=== PATIENT | female | born 1990 | race Caucasian/White ===

== ENCOUNTER 2022-03-24 14:05 | Emergency (ER) | payer OTHER, SELFPAY ==
--- NOTE | 2022-03-24 14:21 | ED_ITS ---
HPI - URI/Sore Throat General Stated Complaint: Fatigue,Headache,Nausea Discharge Plan Discharge Follow-up/Referrals: PHYSICIAN,NETWORK CABLER [Primary Care Provider] -
--- NOTE | 2022-03-24 14:21 | ED.URI ---
HPI - URI/Sore Throat General Stated Complaint: Fatigue,Headache,Nausea Discharge Plan Discharge Follow-up/Referrals: PHYSICIAN,LIFE INSURANCE SPECIALIST [Primary Care Provider] -
[2022-03-24 14:27] VITALS: BP 131/76; PULSE 91; RESP 18; TEMP 36.8; O2SAT 98
--- NOTE | 2022-03-24 14:38 | ED.URI ---
HPI - URI/Sore Throat General Chief Complaint: Upper Respiratory Infection Stated Complaint: Fatigue,Headache,Nausea Time Seen by Provider: 03/24/22 14:45 Source: patient and RN notes reviewed Mode of arrival: ambulatory Limitations: no limitations History of Present Illness HPI Narrative: 41-year-old female presents concern for 4-day history of nasal congestion, fatigue, sinus pressure, nausea, headache. Reports fever up to 101. She reports symptoms started with a migraine that has improved, she is still having a sinus headache. She reports taking utdp-tll-avicpwe cold and flu medicines without relief. She denies vomiting or abdominal pain MD elicited complaint: nasal congestion Related Data Home Medications Medication Instructions Recorded Confirmed duloxetine 30 mg capsule,delayed 30 mg PO DAILY 03/24/22 03/24/22 release duloxetine 60 mg capsule,delayed 60 mg PO DAILY 03/24/22 03/24/22 release Allergies Allergy/AdvReac Type Severity Reaction Status Date / Time cefaclor [From Ceclor] Allergy Unknown Verified 03/24/22 14:53 metoclopramide [From Reglan] Allergy Unknown Verified 03/24/22 14:53 Pndfoyz-ROP-OsC Reductase Allergy Unknown Verified 03/24/22 14:53 Inhibitor Review of Systems Review of Systems: CONSTITUTIONAL: Reports malaise, fatigue, fever. EYES: Denies visual changes, redness, or discharge. ENT: Reports rhinorrhea, congestion, sinus pain. Denies otalgia and sore throat. CARDIOVASCULAR: Denies chest pain, palpitations, or edema. RESPIRATORY: Denies cough. Denies dyspnea. GASTROINTESTINAL: Denies abdominal pain, nausea, vomiting, diarrhea SKIN: Denies rash or itching. MUSCULOSKELETAL: Denies myalgia. NEUROLOGIC: Reports headache. All systems reviewed & are unremarkable except as noted in HPI and below PMFSH Comments At time of signature, agree with nursing past medical, surgical, social and family history. There is no relevant family history pertinent to the presenting complaint Exam Narrative: GENERAL: Well-appearing, well-nourished, and in no acute distress. HEAD: Normocephalic EYES: PERRLA, conjunctivae clear ENT: Nares clear, turbinates edematous and erythematous, clear discharge. Mucous membranes moist. TM pearly fry with dull light reflex bilaterally; no tragal tenderness. Oropharynx not erythematous without lesions. Tonsils not enlarged and without exudate, no drooling, no hoarseness, no trismus, uvula midline. NECK: Supple. No lymphadenopathy CHEST: Clear to auscultation, breath sounds equal. No wheezing, rhonchi, rales, or stridor. No respiratory distress, speaks in full sentences. HEART: Regular rate and rhythm. No murmur heard. SKIN: Warm, dry, no rash. NEURO: Alert and oriented x3. PSYCH: Normal mood and affect Course Course Emergency Course: Patient is aware of diagnosis, understands and agrees to treatment plan. Anticipatory guidance given. Patient agrees to follow-up as directed and is aware of reasons to seek care at the emergency department. Portions of this record may have been created with voice recognition software Level of Care: Express Care Visit Vital Signs Vital signs: Vital Signs Temperature 98.2 F 03/24/22 14:27 Pulse Rate 91 03/24/22 14:27 Respiratory Rate 18 03/24/22 14:27 Blood Pressure 131/76 03/24/22 14:27 Pulse Oximetry 98 03/24/22 14:27 Oxygen Delivery Room Air 03/24/22 14:27 Temperature 98.2 F 03/24/22 14:27 Pulse Rate 91 03/24/22 14:27 Respiratory Rate 18 03/24/22 14:27 Blood Pressure 131/76 03/24/22 14:27 Pulse Oximetry 98 03/24/22 14:27 Oxygen Delivery Room Air 03/24/22 14:27 Reviewed. MDM - URI/Sore Throat MDM Narrative Medical decision making narrative: Differential diagnosis considered: Ortiz virus, strep pharyngitis, allergic rhinitis, upper respiratory tract infection, sinusitis, rhinosinusitis, nasopharyngitis. viral pharyngitis, otitis media, otitis externa, pneumonia, bronchitis, vir
== END 2022-03-24 15:04 | disposition home or self-care (01) ==
PROVIDERS: Emergency Provider Nurse Practitioner
DX: B34.9 Viral infection, unspecified (principal); F32.A Depression, unspecified
CPT/HCPCS: 87804; 99203; G0463

== ENCOUNTER 2023-03-08 09:16 | Outpatient (RCR) | payer OTHER, SELFPAY | END 2023-06-06 23:59 | disposition home or self-care (01) | LOC: ANHDMC 09:16 | PROVIDERS: Visit Provider Obstetrics & Gynecology Gynecologic Oncology | DX: O24.419 Gestational diabetes mellitus in pregnancy, unspecified control (principal); Z3A.27 27 weeks gestation of pregnancy; Z71.89 Other specified counseling | CPT/HCPCS: G0108 ==

== ENCOUNTER 2025-01-26 13:36 | Emergency (ER) | payer BC, SELFPAY ==
--- NOTE | 2025-01-26 13:37 | ED_ITS ---
HPI - Skin/Abscess/Foreign Bdy General Chief complaint: Skin/Abscess/Foreign Body Stated complaint: Skin/Abscess/Foreign Body Time Seen by Provider: 01/26/25 13:37 Source: patient Mode of arrival: ambulatory Limitations: no limitations History of Present Illness HPI narrative: Patient is a 34-year-old female that presents for infected wound. Patient states she had Nexplanon removed from left arm 2 weeks ago. Patient states approximately 8 days ago it started to appear to be ulcerating and had green discharge where lidocaine had been injected. Patient denies any worsening surrounding redness, fever, chills, nausea, vomiting, diarrhea. Related Data Home Medications ?Medication ?Instructions ?Recorded ?Confirmed ?Last Taken ?Type duloxetine 30 mg capsule,delayed 30 mg PO DAILY 03/24/22 01/26/25 Unknown History release duloxetine 60 mg capsule,delayed 60 mg PO DAILY 03/24/22 01/26/25 Unknown History release ergocalciferol (vitamin D2) 1,250 01/26/25 Unknown History mcg (50,000 unit) capsule ezetimibe 10 mg tablet mg 01/26/25 Unknown History lamotrigine 100 mg tablet mg 01/26/25 Unknown History Allergies Allergy/AdvReac Type Severity Reaction Status Date / Time cefaclor (From Ceclor) Allergy Unknown Verified 01/26/25 13:44 metoclopramide (From Reglan) Allergy Unknown Verified 01/26/25 13:44 Rhvvhad-AHX-LhN Reductase Allergy Unknown Verified 01/26/25 13:44 Inhibitor Review of Systems 2 Review of Systems: All systems reviewed & are unremarkable except as noted in HPI and below Constitutional: Constitutional: Denies body ache(s), Denies chills, Denies fatigue, Denies fever(s), Denies headache(s), Denies malaise and Denies weakness Eyes: Eyes: Denies blurry vision, Denies irritation and Denies loss of vision ENT: Denies otalgia, Denies headache(s), Denies nasal discharge, Denies sinus pain and Denies sore throat Cardiovascular: Cardiovascular: Denies chest pain, Denies irregular heart rhythm and Denies dyspnea Respiratory: Respiratory: Denies dyspnea Gastrointestinal: Gastrointestinal: Denies abdominal pain, Denies melena, Denies hematochezia, Denies diarrhea, Denies nausea and Denies vomiting Musculoskeletal: Musculoskeletal: Denies back pain, Denies myalgias and Denies arthralgias Integumentary/Breasts: Skin/Breast: Denies pruritus, Reports erythema, Denies rash, Reports skin pain and Reports wounds Neurologic: Denies headache(s), Denies loss of vision and Denies weakness Psychiatric: Psychiatric: Reports no additional psychiatric complaints Endocrine: Endocrine: Denies fatigue PMFSH Comments At time of signature, agree with nursing past medical, surgical, social and family history. There is no relevant family history pertinent to the presenting complaint. Exam 2 Const: General: cooperative, healthy appearing, comfortable, no acute distress and well nourished Nutritional Appearance: well nourished O rientation/consciousness: patient oriented x3 Limitations: no limitations HENMT: Head: normal to inspection, normocephalic and atraumatic Ears: h earing grossly normal bilaterally and external ears normal Face/Nose/Sinus: N ormal external nose present, normal facial exam and face symmetric Face and sinus: normal facial exam and face symmetric Mouth: Yes lip normal Eyes: General: appearance normal, both eyes and all related structures A lignment and Position: alignment normal and position normal Periorbital: p eriorbital findings normal Eyelids: eyelids normal Pupils: Equal, round and reactive pupils present EOM: EOMs intact bilaterally Neck: Neck: normal visual inspection, full ROM and supple Chest: Chest palpation & inspection: normal inspection of the chest Resp: Effort & Inspection: normal respiratory effort and able to speak in complete sentences Auscultation: clear to auscultation bilaterally Cardio: Rate: tachycardic Rhythm: regular rhythm Heart sounds: S1 normal heart sound present and S2 normal heart sound present GI: Inspection: normal to inspection Skin: General skin exam: normal color Full body images: 1. 1x1.5 cm area of ulcerating open wound. surrounded by 2x3 cm area of erythema and induration. Neuro: General: patient oriented x3 and moves all extremities Cranial nerves: Yes Equal, round and reactive pupils present Speech: normal speech Gait exam (Neuro): Normal gait present Extrem: General: normal to inspection, full ROM and no edema Psych: Appearance: grossly normal and well kempt Mental Status: mental status grossly normal Speech and movement: Normal speech and movement present Affect: normal affect Attitude: cooperative Thought process: Normal thought process present Course Course Emergency Course: Patient is aware of diagnosis, understands and agrees to treatment plan. Anticipatory guidance given. Patient agrees to follow-up as directed and is aware of reasons to seek care at the emergency department. Portions of this record may have been created with voice recognition software Level of Care: Express Care Visit Vital Signs Vital signs: Vital Signs Temperature 36.3 C L 01/26/25 13:55 Pulse Rate 108 H 01/26/25 13:55 Respiratory Rate 20 01/26/25 13:55 Blood Pressure 121/76 01/26/25 13:55 Pulse Oximetry 99 01/26/25 13:55 Oxygen Delivery Room Air 01/26/25 13:55 Temperature 36.3 C L 01/26/25 13:55 Pulse Rate 108 H 01/26/25 13:55 Respiratory Rate 20 01/26/25 13:55 Blood Pressure 121/76 01/26/25 13:55 Pulse Oximetry 99 01/26/25 13:55 Oxygen Delivery Room Air 01/26/25 13:55 Reviewed MDM - Skin/Abscess/Foreign Bdy MDM Narrative Medical decision making narrative: Pt well hydrated appearing, in no respiratory distress, hemodynamically stable. Recommend supportive care. The patient is stable at time of discharge the clinical impression was discussed and the patient was given the opportunity to ask questions, which were addressed as completely as possible given the information available at present. Anticipatory guidance and return to care precautions were discussed and the importance of primary care follow-up was stressed and encouraged. The patient voiced understanding of the plan, indications to return, and the need for follow-up. Exam findings show no acute concerns or changes Patient is appropriate for outpatient treatment and follow-up. Differential Diagnosis Differential diagnosis: Likely abscess of skin or subcutaneous tissue, allergic reaction to drug, cellulitis and contact dermatitis Medical Records Attestation: I reviewed the patient's medical records. Discharge Plan Discharge Clinical Impression: Cellulitis Qualifiers: Site of cellulitis: extremity Site of cellulitis of extremity: upper extremity Laterality: left Qualified Code(s): L03.114 - Cellulitis of left upper limb Patient Disposition: Home Condition: Stable Instructions: Cellulitis (ED) Additional Instructions: Please follow up with your Primary Care Doctor within 48-72 hours - call for an appointment. Rest and elevate affected area; apply moist heat 3-4 times daily for 10-15 minutes. Clean with soap and water only; Avoid using alcohol and peroxide. Elevate the affected area if possible Please take Antibiotics as directed. For pain, you may take: Tylenol 650-1000mg by mouth every 4-6 hours. Do not exceed 4000mg in 24 hours. Advil (Ibuprofen) 600 mg by mouth every 6 hours. Do not exceed 2400mg in 24 hours. 8 AM: Tylenol 11 AM: Ibuprofen 2 PM: Tylenol 5 PM: Ibuprofen 8 PM: Tylenol 11 PM: Ibuprofen 2 AM: Tylenol 5 AM: Ibuprofen If you experience any worsening redness, swelling, streaking (red lines), fever or chills please go to the ER Patient Language: Hebrew Prescriptions: New sulfamethoxazole-trimethoprim 800-160 mg tablet 1 tablet PO Q12H 7 Days Qty: 14 0RF No Action duloxetine 30 mg capsule,delayed release(DR/EC) 30 mg PO DAILY duloxetine 60 mg capsule,delayed release(DR/EC) 60 mg PO DAILY ergocalciferol (vitamin D2) 1,250 mcg (50,000 unit) capsule lamotrigine 100 mg tablet ezetimibe 10 mg tablet Follow-up/Referrals: Romy,Nilsa Alegre, GRAPHICS ARTIST [Primary Care Provider] - 3 Days Time of Disposition: 14:22
--- OUTSIDE RECORDS SUMMARY | 2025-01-26 13:39 | XMS_ITS | Encounter Summary ---
Author Organization [facility] Address [address] [place] [address] Care Team Providers Care Stores Assistant Name Role Phone Esme Mercado MD Primary Care Provider Unavailab le Encounter Details Date Type Department Care Team (Late st Contact Info) Description 11/27/2004 Outpatient [facility] Family Medicine [address] 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
--- OUTSIDE RECORDS SUMMARY | 2025-01-26 13:39 | XMS_ITS | Encounter Summary ---
Author Organization [employer] Address 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
--- OUTSIDE RECORDS SUMMARY | 2025-01-26 13:39 | XMS_ITS | Encounter Summary ---
Author Organization [employer] Address [address] [place] [address] Care Team Providers Care Neurology Physician Name Role Phone Esme Mercado MD Primary Care Provider Unavailab le Encounter Details Date Type Department Care Team (Late st Contact Info) Description 11/28/2004 Outpatient Historical [facility] Ilda Rivera MD [address] [place] [address] ABDOMINAL PAIN UNSPEC SITE (Primary Dx) Social History Tobacco Use Types Packs/Day Years Used Date Smoking Tobacco: Never Assessed Comments Unknown Sex and Gender Information Value Date Recorded Sex Assigned at Not on file 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 Gender Identity Not on file Sexual Orientation Not on file documented as of this encounter Plan of Treatment Not on file documented as of this encounter Procedures Procedure Name Priority Date/Time Associated Diagnosis Comments URINE PERIOD/VOLUME Routine 11/28/2004 1 0:29 AM CDT PORPHOBILINOGEN QUANTITATIVE, 24HR URINE Routine 11/28/2004 10:29 AM CDT documented in this encounter Results * URINE PERIOD/VOLUME (11/28/2004 10:29 AM CDT) START DATE 24 HR UR :[id number] .[id number]:0: 0 INTERFACE SYSTEM START TIME 24 HR UR [id number] time INTERFACE SYSTEM LENGTH OF COLLECTION 24 23 - 25 hr INTERFACE SYSTEM VOLUME, 24 HR URINE 1275 mL INTERFACE SYSTEM 11/28/2004 10:2 9 AM CDT Ilda Tello MD URINE ORDERABLES Final Resul t Performing Organization Address [facility] Phone Number INTERFACE SYSTEM Refer to clinic/hospital department * PORPHOBILINOGEN QUANTITATIVE, 24HR URINE (11/28/2004 10:29 AM CDT) PORPHOBILINOGEN QNT, 24 HR UR 1.1 mg/24 hrs INTERFACE SYSTEM Comment: Reference Range: 2.7 OR LESS Elevated Urine Porphyria Porphobilinogen Acute intermittent porphyria + ALA dehydratase deficiency + porphyria Congenital erythropoietic - coproporphyia Erythropoietic protoporphyria - Hepatoerythropoietic - porphyria Hereditary coproporphyria +/- Porphyria cutanea tarda - Variegate porphyria +/- Patients with hereditary forms of porphyria usually will present with profound elevations of this analyte (>5-fold) during acute episodes. Moderate elevations (<3-fold) are more often due to medications or environmental factors. Lab test performed by: [email or web address] [id number] [place] [address] Genie STUBBS MD 11/28/2004 10:2 9 AM CDT Ilda Tello MD URINE ORDERABLES Final Resul t Performing Organization Address [facility] Phone Number INTERFACE SYSTEM Refer to clinic/hospital department documented in this encounter Visit Diagnoses Diagnosis Abdominal pain, unspecified site- Primary documented in this encounter Care Teams Neurology Physician Relationship Specialty Start Date End Date Esme Mercado MD PCP - General Family Practice 09/06/14 documented as of this encounter
--- OUTSIDE RECORDS SUMMARY | 2025-01-26 13:39 | XMS_ITS | Encounter Summary ---
Author Organization [facility] [place] Address [address] [place] [address] Care Team Providers Care Bag Cutter Name Role Phone Esme Mercado MD Primary Care Provider Unavailab le Encounter Details Date Type Department Care Team (Late st Contact Info) Description 08/11/2003 Outpatient Historical [facility] [address] [place] [address] Dr [address] [place] [address] John Milton MD [address] [place] [address] Social History Tobacco Use Types Packs/Day Years Used Date Smoking Tobacco: Never Assessed Comments Unknown Sex and Gender Information Value Date Recorded Sex Assigned at Not on file Legal Sex Female 5:20 AM METAL ROOM DENTAL TECHNICIAN Gender Identity Not on file Sexual Orientation Not on file documented as of this encounter Plan of Treatment Not on file documented as of this encounter Visit Diagnoses Not on filedocumented in this encounter Care Teams Bag Cutter Relationship Specialty Start Date End Date Esme Mercado MD PCP - General Family Practice 09/06/14 documented as of this encounter
--- OUTSIDE RECORDS SUMMARY | 2025-01-26 13:39 | XMS_ITS | Encounter Summary ---
Author Organization [employer] Address 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
--- OUTSIDE RECORDS SUMMARY | 2025-01-26 13:39 | XMS_ITS | Encounter Summary ---
Author Organization [employer] Address [address] [place] [address] Care Team Providers Care Machine Assembler For Puller Over Name Role Phone Esme Mercado MD Primary Care Provider Unavailab le Encounter Details Date Type Department Care Team (Late st Contact Info) Description 09/15/2004 Outpatient Historical [facility] John Milton MD [address] [place] [address] FEMALE GENITAL SYMPTOMS NEC (Primary Dx) Social History Tobacco Use Types Packs/Day Years Used Date Smoking Tobacco: Never Assessed Comments Unknown Sex and Gender Information Value Date Recorded Sex Assigned at Not on file Legal Sex Female 5:20 AM DIRECT SERVICE WORKER Gender Identity Not on file Sexual Orientation Not on file documented as of this encounter Plan of Treatment Not on file documented as of this encounter Visit Diagnoses Diagnosis Other specified symptom associated with female genital organs- Primary documented in this encounter Care Teams Machine Assembler For Puller Over Relationship Specialty Start Date End Date Esme Mercado MD PCP - General Family Practice 09/06/14 documented as of this encounter
--- OUTSIDE RECORDS SUMMARY | 2025-01-26 13:39 | XMS_ITS | Encounter Summary ---
Author Organization [employer] Address [address] [place] [address] Care Team Providers Care Florist Name Role Phone Esme Mercado MD Primary Care Provider Unavailab le Encounter Details Date Type Department Care Team (Late st Contact Info) Description 08/23/2003 Outpatient Historical [facility] Child and Adolescent Psychiatry [facility] [address] [place] [address] Samy Verduzco, RECYCLER- NO ADDRESS ON FILE Social History Tobacco Use Types Packs/Day Years Used Date Smoking Tobacco: Never Assessed Comments Unknown Sex and Gender Information Value Date Recorded Sex Assigned at Not on file 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
--- OUTSIDE RECORDS SUMMARY | 2025-01-26 13:39 | XMS_ITS | Encounter Summary ---
Author Organization [employer] Address [address] [place] [address] Care Team Providers Care Brush Or Broom Cutter Name Role Phone Esme Mercado MD Primary Care Provider Unavailab le Encounter Details Date Type Department Care Team (Late st Contact Info) Description 02/22/2004 Emergency [facility] Ebony Manning MD [address] [place] [id number] Er, Authorized P NO ADDRESS ON FILE DEPRESSIVE DISORDER NEC (Primary Dx) Social History Tobacco Use Types Packs/Day Years Used Date Smoking Tobacco: Never Assessed Comments Unknown Sex and Gender Information Value Date Recorded Sex Assigned at Not on file Legal Sex Female 5:20 AM FORMULA BOTTLER Gender Identity Not on file Sexual Orientation Not on file documented as of this encounter Plan of Treatment Not on file documented as of this encounter Visit Diagnoses Diagnosis Depressive disorder, not elsewhere classified- Primary documented in this encounter Care Teams Brush Or Broom Cutter Relationship Specialty Start Date End Date Esme Mercado MD PCP - General Family Practice 09/06/14 documented as of this encounter
--- OUTSIDE RECORDS SUMMARY | 2025-01-26 13:39 | XMS_ITS | Encounter Summary ---
Author Organization [employer] Address 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
--- OUTSIDE RECORDS SUMMARY | 2025-01-26 13:39 | XMS_ITS | Encounter Summary ---
Author Organization [facility] Address [address] [place] [address] Care Team Providers Care Insurance Healthcare Representative Name Role Phone Esme Mercado MD Primary Care Provider Unavailab le Encounter Details Date Type Department Care Team (Late st Contact Info) Description 07/02/2004 Outpatient Historical [facility] [address] [place] [address] [address] [place] [address] John Milton MD [address] [place] [address] Social History Tobacco Use Types Packs/Day Years Used Date Smoking Tobacco: Never Assessed Comments Unknown Sex and Gender Information Value Date Recorded Sex Assigned at Not on file Legal Sex Female 5:20 AM PERCH MENDER Gender Identity Not on file Sexual Orientation Not on file documented as of this encounter Plan of Treatment Not on file documented as of this encounter Visit Diagnoses Not on filedocumented in this encounter Care Teams Insurance Healthcare Representative Relationship Specialty Start Date End Date Esme Mercado MD PCP - General Family Practice 09/06/14 documented as of this encounter
--- OUTSIDE RECORDS SUMMARY | 2025-01-26 13:39 | XMS_ITS | Encounter Summary ---
Author Organization [facility] Address [address] [place] [address] Care Team Providers Care Master Brewer Name Role Phone Esme Mercado MD Primary Care Provider Unavailab le Encounter Details Date Type Department Care Team (Late st Contact Info) Description 08/27/2004 Outpatient Historical [facility] [address] [place] [address] [address] [place] [address] John Milton MD [address] [place] [address] Social History Tobacco Use Types Packs/Day Years Used Date Smoking Tobacco: Never Assessed Comments Unknown Sex and Gender Information Value Date Recorded Sex Assigned at Not on file Legal Sex Female 5:20 AM BAR WAITER/WAITRESS Gender Identity Not on file Sexual Orientation Not on file documented as of this encounter Plan of Treatment Not on file documented as of this encounter Visit Diagnoses Not on filedocumented in this encounter Care Teams Master Brewer Relationship Specialty Start Date End Date Esme Mercado MD PCP - General Family Practice 09/06/14 documented as of this encounter
--- OUTSIDE RECORDS SUMMARY | 2025-01-26 13:39 | XMS_ITS | Clinical Summary ---
Author Organization [facility] Address [address] [place] [address] Care Team Providers Care Licensed Reactor Operator Name Role Phone None, Provider MD Primary Care Provider Unavaila ble Allergies Active Allergy Reactions Criticality Noted Date Comments Cefaclor Rash Medium 10/08/2022 Reaction: Rash, , , Venlafaxine Rash Low 10/08/2022 Metoclopramide Other (see comment) High 06/06/2014 Alters mental status suicidal Statins GI Upset Low 09/21/2020 Medications DULoxetine (CYMBALTA) 60 MG capsule Take 2 capsules (120 mg total) by mouth nightly at bedtime. Active famotidine (PEPCID) 20 MG tablet Take 1 tablet (20 mg total) by mouth nightly at bedtime. Active aspirin-acetami nophen-caffeine (EXCEDRIN MIGRAINE) 250-250-65 MG tablet Take 1 tablet by mouth every 6 (six) hours as needed for Pain. Active HYDROcodone-zhane taminophen (NORCO) 5-325 MG tabletIndicatio ns:Acute Pain < 3 Day Supply Take 1 tablet by mouth every 6 (six) hours as needed. Indications: Acute Pain < 3 Day Supply 10 tablet 06/10/2023 Active Active Problems Problem Noted Date Diagnosed Date Facial cellulitis 06/07/2023 Severe pre-eclampsia, with lino marquez, with current complication ([facility]/HCC) 04/05/2023 Hx of section 04/02/2023 Immunizations Immunization Administration Dates Next Due Fluzone 6 Months+ Quad (0.5 mL Prefilled Syringe ) 04/04/2023 Tdap (Boostrix) 04/04/2023 Family History Medical History Relation Comments None Brother None Daughter None Father Aneurysm Maternal Grandfather Arthritis Maternal Grandfather Hypertension Maternal Grandfather Arthritis Maternal Grandmother COPD Maternal Grandmother Depression Maternal Grandmother Hypertension Maternal Grandmother Mental Health Maternal Grandmother Rheumatoid Arthritis Maternal Grandmother Arthritis Mother Asthma Mother Cancer Mother Depression Mother Hypertension Mother Mental Health Mother Migraines Mother Thyroid Disease Mother Diabetes Paternal Grandfather Emphysema Paternal Grandfather Heart Disease Paternal Grandfather Mental Health Sister Migraines Sister Thyroid Disease Sister Breast Cancer Neg Hx Relation Status Comments Brother Alive Daughter Alive Father Alive Maternal Grandfather Maternal Grandmother Mother Alive Paternal Grandfather Sister Alive Social History Tobacco Use Types Packs/Day Years Used Date Smoking Tobacco: Former Cigarettes Smokeless Tobacco: Never Tobacco Cessation:Counseling Given: Not Answered Alcohol Use Standard Drinks/Week Comments Not Currently 0 (1 standard drink = 0.6 oz pur e alcohol) [facility] Utilities Answer Date Recorded In the past 12 months has e Lucky Oyster, oil, or water Flickme threatened to shut off services in your home? No 06/07/2023 Humiliation, Afraid, Rape, and Kick questionnair e Answer Date Recorded Within the last year, have y ou been afraid of your partner or ex-partner? No 06/07/2023 Within the last year, have y ou been humiliated or emotionally abused in other ways by your partner or ex-partner? No Within the last year, have y ou been kicked, hit, slapped, or otherwise physically hurt by your partner or ex-partner? No 06/07/2023 Within the last year, have y ou been raped or forced to have any kind of sexual activity by your partner or ex-partner? No 06/07/2023 Social Connection and Isolation Panel [NHANES] A nswer Date Recorded In a typical week, how many times do you talk on the phone with family, friends, or neighbors? Patient declined 04/02/20 How often do you get togethe r with friends or relatives? Patient declined 04/02/2023 How often do you attend chur ch or mormonism services? Patient declined 04/02/2023 Do you belong to any clubs o r organizations such as scientology groups, unions, fraternal or athletic groups, or school groups? Patient declined 04/02/2023 How often do you attend meet ings of the clubs or organizations you belong to? Patient declined 04/02/2023 Are you , , di vorced, , never , or living with a partner? Living with partner 04/02/2023 AUDIT-C Answer Date Recorded Q1: How often do you have a drink containing alcohol? Never 04/02/2023 Q2: How many drinks containi ng alcohol do you have on a typical day when you are drinking? Patient does not drink Q3: How often do you have si x or more drinks on one occasion? Never 04/02/2023 Overall Financial Resource Strain (CARDIA) Answe r Date Recorded How hard is it for you to pa y for the very basics like food, housing, medical care, and heating? Somewhat hard 06/07/2023 [facility] - Occupational Stress Questionnaire Answer Date Recorded Do you feel stress - tense, restless, nervous, or anxious, or unable to sleep at night because your mind is troubled all the time - these days? Patient declined 04/02/2023 Exercise Vital Sign Answer Date Recorde d On average, how many days pe r week do you engage in moderate to strenuous exercise (like a brisk walk)? Patient declined On average, how many minutes do you engage in exercise at this level? Patient declined 04/02/2023 Hunger Vital Sign Answer Date Recorded Within the past 12 months, y ou worried that your food would run out before you got the money to buy more. Sometimes true Within the past 12 months, t he food you bought just didn't last and you didn't have money to get more. Sometimes true PRAPARE - Transportation Answer Date Re corded In the past 12 months, has l ack of transportation kept you from medical appointments or from getting medications? No 05/21 In the past 12 months, has l ack of transportation kept you from meetings, work, or from getting things needed for daily living? No 06/07/2023 Housing Stability Vital Sign Answer Derick e Recorded In the last 12 months, was t here a time when you were not able to pay the mortgage or rent on time? No 06/07/2023 In the last 12 months, how many places have you lived? 1 06/07/2023 In the last 12 months, was t here a time when you did not have a steady place to sleep or slept in a care home (including now)? No 06/07/2023 Comments No Sex and Gender Information Value Date Recorded Sex Assigned at Not on file Legal Sex Female 11:49 AM CDT Gender Identity Not on file Sexual Orientation Not on file Last Filed Vital Signs Vital Sign Reading Time Taken Comments Blood Pressure 152/99 10/16/2023 11:37 AM CDT Pulse 88 10/16/2023 11:37 AM CDT Temperature 36.3 C (97.3 F) 10/16/2023 11:37 AM CDT Respiratory Rate 20 10/16/2023 11:37 AM CDT Oxygen Saturation 96% 10/16/2023 11:37 AM CDT Inhaled Oxygen Concentration - - Weight 113.4 kg (250 lb) 10/16/2023 11:37 AM CDT Height 167.6 cm (5' 6) 10/16/2023 11:37 AM CDT Body Mass Index 40.35 10/16/2023 11:37 AM CDT Plan of Treatment Health Maintenance Due Date Last Done Comments Annual Physical 1993 Hepatitis B Vaccines (1 of 3 - 19+ 3-dose series) 2009 HPV Vaccines (1 - 3-dose SCD M series) 2017 Cervical Cancer Screening Pa p with HPV Testing (Age 30 to 64) Every 5 Years 2020 COVID-19 Vaccine (3 - 2023-2 5 season) 2024 11/26/2020, 10/25/2020 Cervical Cancer Screening Pa p Smear (Age 30 to 64) Every 3 Years 03/13/2024 03/13/2021 Cervical Cancer Screening wi th HPV 03/13/2024 PHQ-2 (Physician [place]) 06/21/2024 DTaP, Tdap and Td Vaccines ( 4 - Td or Tdap) 04/04/2033 04/04/2023, 04/25/2012, 05/05/2008 Pneumococcal Vaccine: Pediatrics (0 to 5 Years) and At-Risk Patients (6 to 49 Years) Aged Out 05/18/2012, 03/21/2012 No longer eligible based on patient's age to complete this topic Hepatitis C Completed 09/04/2022 Meningococcal B Vaccine Aged Out No l onger eligible based on patient's age to complete this topic Meningococcal Vaccine Aged Out No jadiel harvinder eligible based on patient's age to complete this topic RSV Immunizations Under 20 Months Aged Out No longer eligible b ased on patient's age to complete this topic Procedures Procedure Name Priority Date/Time Associated Diagnosis Comments HEPATITIS C ANTIBODY Routine 09/04/2022 from Last 3 Months or Most Recently Relevant to Health Maintenance Results * HEPATITIS C ANTIBODY (09/04/2022) HEPATITIS C AB non-reacti ve Narrative Resulting Agency Comment us Default History Genericprovider LABORATORY Final Result from Last 3 Months or Most Recently Relevant to Health Maintenance Additional Health Concerns Infection Onset Date Last Indicated MRSA Comment:03/05/23 mary (HANG) 03/05/2023 03/05/2023 Insurance Advance Directives * Full Code (Latest Code Status on File) Date Activated Date Inactivated Comments 06/07/2023 6:14 AM 06/10/2023 3:28 PM * Full Code Date Activated Date Inactivated Comments 04/02/2023 9:44 AM 04/05/2023 10:21 PM * Full Code Date Activated Date Inactivated Comments 04/02/2023 9:44 AM 04/02/2023 9:44 AM * Full Code Date Activated Date Inactivated Comments 04/02/2023 6:25 AM 04/02/2023 9:44 AM * Full Code Date Activated Date Inactivated Comments 03/31/2023 11:30 AM 03/31/2023 4:11 PM Care Teams Licensed Reactor Operator Relationship Specialty Start Date End Date None, Provider, MD PCP - General UNKNOWN PHYSICIAN SPECIALTY 10/16/23
--- OUTSIDE RECORDS SUMMARY | 2025-01-26 13:39 | XMS_ITS | Encounter Summary ---
Author Organization [facility] Address [address] [place] [address] Care Team Providers Care Concrete Finisher Apprentice Name Role Phone Esme Mercado MD Primary Care Provider Unavailab le Encounter Details Date Type Department Care Team (Late st Contact Info) Description 04/23/2004 Outpatient [facility] [address] [place] [address] [address] [place] [address] John Milton MD [address] [place] [address] Social History Tobacco Use Types Packs/Day Years Used Date Smoking Tobacco: Never Assessed Comments Unknown Sex and Gender Information Value Date Recorded Sex Assigned at Not on file Legal Sex Female 5:20 AM PROJECT ENGINEER Gender Identity Not on file Sexual Orientation Not on file documented as of this encounter Plan of Treatment Not on file documented as of this encounter Visit Diagnoses Not on filedocumented in this encounter Care Teams Concrete Finisher Apprentice Relationship Specialty Start Date End Date Esme Mercado MD PCP - General Family Practice 09/06/14 documented as of this encounter
--- OUTSIDE RECORDS SUMMARY | 2025-01-26 13:39 | XMS_ITS | Encounter Summary ---
Author Organization [employer] Address [address] [place] [address] Care Team Providers Care Scouring Machine Tender Name Role Phone Esme Mercado MD Primary Care Provider Unavailab le Encounter Details Date Type Department Care Team (Late st Contact Info) Description 09/23/2004 Outpatient Historical [facility] John Saenz MD [address] [place] [address] ABDOMINAL PAIN RUQ (Primary Dx) Social History Tobacco Use Types Packs/Day Years Used Date Smoking Tobacco: Never Assessed Comments Unknown Sex and Gender Information Value Date Recorded Sex Assigned at Not on file Legal Sex Female 5:20 AM MANAGER VALUATION Gender Identity Not on file Sexual Orientation Not on file documented as of this encounter Plan of Treatment Not on file documented as of this encounter Procedures Procedure Name Priority Date/Time Associated Diagnosis Comments CBC WITH DIFFERENTIAL Routine 09/23/2004 3:10 PM CDT CBC WITH DIFFERENTIAL Routine 09/23/2004 3:10 PM CDT GGT Routine 09/23/2004 3:10 PM CDT AMYLASE Routine 09/23/2004 3:10 PM CDT COMPREHENSIVE METABOLIC PANEL Routine 09/23/2004 3:10 PM CDT documented in this encounter Results * (ABNORMAL) CBC WITH DIFFERENTIAL (09/23/2004 3:10 PM CDT) NEUTROPHIL ABSOLUTE 3.50 K/uL INTERFACE SYSTEM LYMPHOCYTE ABSOLUTE 2.85 K/uL INTERFACE SYSTEM MONOCYTE ABSOLUTE 0.95 K/uL IN TERFACE SYSTEM EOSINOPHIL ABSOLUTE 0.00 K/uL INTERFACE SYSTEM BASOPHILS ABSOLUTE 0.00 K/uL INTERFACE SYSTEM NEUTROPHILS, SEG 48 36 - 74 % INT ERFACE SYSTEM LYMPHOCYTES 39 18 - 53 % INTERFAC E SYSTEM MONOCYTES 13 2 - 13 % INTERFACE SYSTEM EOSINOPHILS 0(L) 2 - 12 % INTERFAC E SYSTEM BASOPHILS 0 0 - 3 % INTERFACE SYSTEM PLATELET EST. Normal Normal INTERF YASEMIN SYSTEM POIKILOCYTES Slight INTERFA CE SYSTEM 09/23/2004 3:10 PM CDT us Luis A Gonsalez MD HEMATOLOGY ORDERABLES Final Resu lt INTERFACE SYSTEM Refer to clinic/hospital department * CBC WITH DIFFERENTIAL (09/23/2004 3:10 PM CDT) WBC 7.3 4.0 - 9.8 K/uL INTERFACE SYSTEM RBC 4.26 3.90 - 4.90 M/uL INTERFACE SYSTEM HEMOGLOBIN 12.5 11.8 - 14.8 g/dL INTERFACE SYSTEM HEMATOCRIT 37.5 35.5 - 44.0 % INTERFACE SYSTEM MCV 88.0 82.0 - 99.0 fL INTERFACE SYSTEM MCH 29.3 27.2 - 32.6 pg INTERFACE SYSTEM MCHC 33.3 31.5 - 35.5 % INTERFACE SYSTEM RDW 12.5 11.5 - 14.5 % INTERFACE SYSTEM RDW-STDEV 40.3 37.1 - 48.7 fL INTERFACE SYSTEM PLATELETS 248 140 - 350 K/uL INTERFACE SYSTEM MPV 11.2 9.3 - 12.4 fL INTERFACE SYSTEM 09/23/2004 3:10 PM CDT us Luis A Gonsalez MD HEMATOLOGY ORDERABLES Final Resu lt Performing Organization Address City/[facility]/ZIP Co de Phone Number INTERFACE SYSTEM Refer to clinic/hospital department * AMYLASE (09/23/2004 3:10 PM CDT) AMYLASE 34 28 - 100 U/L INTERFACE SYSTEM 09/23/2004 3:10 PM CDT us Luis A Gonsalez MD CHEMISTRY ORDERABLES Final Resul t Performing Organization Address City/[facility] Co de Phone Number INTERFACE SYSTEM Refer to clinic/hospital department * (ABNORMAL) GGT (09/23/2004 3:10 PM CDT) GGT 30(H) 4 - 24 U/L INTERFACE SYSTEM 09/23/2004 3:10 PM CDT us Luis A Gonsalez MD CHEMISTRY ORDERABLES Final Resul t Performing Organization Address [facility] Phone Number INTERFACE SYSTEM Refer to clinic/hospital department * (ABNORMAL) COMPREHENSIVE METABOLIC PANEL (09/23/2004 3:10 PM CDT) GLUCOSE 74 60 - 110 mg/dL INTERFACE SYSTEM CREATININE 0.7 0.4 - 1.2 mg/dL INTERFACE SYSTEM CALCIUM 9.4 8.4 - 10.2 mg/dL INTERFACE SYSTEM AST 33(H) 12 - 32 U/L INTERFACE SYSTEM ALKALINE PHOSPHATASE 68 35 - 187 U/L INTERFACE SYSTEM BUN 10 6 - 20 mg/dL INTERFACE SYSTEM BILIRUBIN TOTAL 0.5 0.2 - 1.0 mg/dL INTERFACE SYSTEM ALBUMIN 4.4 3.8 - 5.4 g/dL INTERFACE SYSTEM TOTAL PROTEIN 7.6 6.3 - 8.6 g/dL INTERFACE SYSTEM ALT 70(H) 0 - 31 U/L INTERFACE SYSTEM SODIUM 142 135 - 145 mmol/L INTERFACE SYSTEM POTASSIUM 3.8 3.5 - 4.9 mmol/L INTERFACE SYSTEM CHLORIDE 108 96 - 108 mmol/L INTERFACE SYSTEM CO2 26 22 - 30 mmol/L INTERFACE SYSTEM 09/23/2004 3:10 PM CDT us Luis A Gonsalez MD CHEMISTRY ORDERABLES Final Resul t Performing Organization Address City/[facility] Co de Phone Number INTERFACE SYSTEM Refer to clinic/hospital department documented in this encounter Visit Diagnoses Diagnosis Abdominal pain, right upper quadrant- Primary documented in this encounter Care Teams Scouring Machine Tender Relationship Specialty Start Date End Date Esme Mercado MD PCP - General Family Practice 09/06/14 documented as of this encounter
--- OUTSIDE RECORDS SUMMARY | 2025-01-26 13:39 | XMS_ITS | Encounter Summary ---
Author Organization [facility] Address [address] [place] [address] Phone Care Team Providers Care Alley Tender Name Role Phone Esme Mercado MD Primary Care Provider [phone] Meliza Eastman MD Primary Care Pr ovider Encounter Details Date Type Department Care Team (Late st Contact Info) Description 09/06/2017 Orders Only [facility] ProviderCris MD [address] [place] [address] Social History Tobacco Use Types Packs/Day Years Used Date Smoking Tobacco: Never Alcohol Use Standard Drinks/Week Comments Yes 0 (1 standard drink = 0.6 oz pur e alcohol) Comments Unknown Sex and Gender Information Value Date Recorded Sex Assigned at Not on file Legal Sex Female 2:39 AM RELEASE MANAGER Gender Identity Female 09/08/2021 3:41 PM CDT Sexual Orientation Bisexual 09/08/2021 3: 41 PM CDT documented as of this encounter Plan of Treatment Not on file documented as of this encounter Procedures Procedure Name Priority Date/Time Associated Diagnosis Comments DISCHARGE LABORATORY CUMULATIVE REPORT 09/06/2017 12:00 AM CDT documented in this encounter Results * DISCHARGE LABORATORY CUMULATIVE REPORT (09/06/2017 12:00 AM CDT) Narrative 09/06/2017 12:00 AM CDT Ordered by an unspecified provider. us Historical Provider LAB BLOOD ORDERABLES Susana l Result documented in this encounter Visit Diagnoses Not on filedocumented in this encounter Care Teams Alley Tender Relationship Specialty Start Date End Date Esme Mercado MD [address] [place] [place] [address] PCP - General 09/18/16 01/19/21 Meliza Eastman MD [address] [place] [address] PCP - General Internal Medicine 01/20/21 documented as of this encounter
--- OUTSIDE RECORDS SUMMARY | 2025-01-26 13:39 | XMS_ITS | Encounter Summary ---
Author Organization [facility] Address [address] [place] [address] Care Team Providers Care Cylinder Inspector And Tester Name Role Phone Esme Mercado MD Primary Care Provider Unavailab le Encounter Details Date Type Department Care Team (Late st Contact Info) Description 09/23/2004 Outpatient [facility] [address] [place] [address] [address] [place] [address] John Milton MD [address] [place] [address] Social History Tobacco Use Types Packs/Day Years Used Date Smoking Tobacco: Never Assessed Comments Unknown Sex and Gender Information Value Date Recorded Sex Assigned at Not on file Legal Sex Female 5:20 AM FOOD TECHNOLOGY TEACHER Gender Identity Not on file Sexual Orientation Not on file documented as of this encounter Plan of Treatment Not on file documented as of this encounter Visit Diagnoses Not on filedocumented in this encounter Care Teams Cylinder Inspector And Tester Relationship Specialty Start Date End Date Esme Mercado MD PCP - General Family Practice 09/06/14 documented as of this encounter
--- OUTSIDE RECORDS SUMMARY | 2025-01-26 13:39 | XMS_ITS | Encounter Summary ---
Author Organization [facility] Address [address] [place] [address] Care Team Providers Care Promos Executive Producer Name Role Phone Esme Mercado MD Primary Care Provider Unavailab le Encounter Details Date Type Department Care Team (Late st Contact Info) Description 12/04/2004 Outpatient Historical [facility] Ilda Tello MD [address] [facility] [place] [address] ABDOMINAL PAIN UNSPEC SITE (Primary Dx) Social History Tobacco Use Types Packs/Day Years Used Date Smoking Tobacco: Never Assessed Comments Unknown Sex and Gender Information Value Date Recorded Sex Assigned at Not on file Legal Sex Female 5:20 AM MUSIC VIDEO PRODUCER Gender Identity Not on file Sexual Orientation Not on file documented as of this encounter Plan of Treatment Not on file documented as of this encounter Visit Diagnoses Diagnosis Abdominal pain, unspecified site- Primary documented in this encounter Care Teams Promos Executive Producer Relationship Specialty Start Date End Date Esme Mercado MD PCP - General Family Practice 09/06/14 documented as of this encounter
--- OUTSIDE RECORDS SUMMARY | 2025-01-26 13:39 | XMS_ITS | Encounter Summary ---
Author Organization [employer] [facility] Address [address] [place] [address] Care Team Providers Care Diesel Maintenance Technician Name Role Phone Esme Mercado MD Primary Care Provider Unavailab le Encounter Details Date Type Department Care Team (Late st Contact Info) Description 04/03/2004 Outpatient [facility] Family Therapy [address] [place] [address] [place] Social History Tobacco Use Types Packs/Day Years Used Date Smoking Tobacco: Never Assessed Comments Unknown Sex and Gender Information Value Date Recorded Sex Assigned at Not on file Legal Sex Female 5:20 AM BOTTLE PACKER Gender Identity Not on file Sexual Orientation Not on file documented as of this encounter Plan of Treatment Not on file documented as of this encounter Visit Diagnoses Not on filedocumented in this encounter Care Teams Diesel Maintenance Technician Relationship Specialty Start Date End Date Esme Mercado MD PCP - General Family Practice 09/06/14 documented as of this encounter
--- OUTSIDE RECORDS SUMMARY | 2025-01-26 13:39 | XMS_ITS | Encounter Summary ---
Author Organization [employer] Address [address] [place] [address] Care Team Providers Care Airplane Patrol Pilot Name Role Phone Esme Mercado MD Primary Care Provider Unavailab le Encounter Details Date Type Department Care Team (Late st Contact Info) Description 03/05/2004 Outpatient Historical [facility] Child and Adolescent Psychiatry [facility] [address] [place] [address] [place] [address] Samy Verduzco, WOODS MANAGER- NO ADDRESS ON FILE Social History Tobacco Use Types Packs/Day Years Used Date Smoking Tobacco: Never Assessed Comments Unknown Sex and Gender Information Value Date Recorded Sex Assigned at Not on file Legal Sex Female 5:20 AM CORE INSERTER Gender Identity Not on file Sexual Orientation Not on file documented as of this encounter Plan of Treatment Not on file documented as of this encounter Visit Diagnoses Not on filedocumented in this encounter Care Teams Airplane Patrol Pilot Relationship Specialty Start Date End Date Esme Mercado MD PCP - General Family Practice 09/06/14 documented as of this encounter
--- OUTSIDE RECORDS SUMMARY | 2025-01-26 13:39 | XMS_ITS | Encounter Summary ---
Author Organization [employer] Address [address] [place] [address] Care Team Providers Care Boat Patcher Plastic Name Role Phone Esme Mercado MD Primary Care Provider Unavailab le Encounter Details Date Type Department Care Team (Late st Contact Info) Description 04/03/2004 Outpatient Historical [facility] Child and Adolescent Psychiatry [facility] [address] [place] [address] Samy Verduzco, SHOP ESTIMATOR- NO ADDRESS ON FILE Social History Tobacco Use Types Packs/Day Years Used Date Smoking Tobacco: Never Assessed Comments Unknown Sex and Gender Information Value Date Recorded Sex Assigned at Not on file Legal Sex Female 5:20 AM SFDC ARCHITECT Gender Identity Not on file Sexual Orientation Not on file documented as of this encounter Plan of Treatment Not on file documented as of this encounter Visit Diagnoses Not on filedocumented in this encounter Care Teams Boat Patcher Plastic Relationship Specialty Start Date End Date Esme Mercado MD PCP - General Family Practice 09/06/14 documented as of this encounter
--- OUTSIDE RECORDS SUMMARY | 2025-01-26 13:39 | XMS_ITS | Clinical Summary ---
Author Organization [facility] en Address [address] [facility] [address] [facility] [place] [address] Care Team Providers Care Planogrammer Name Role Phone Esme Mercado MD Primary Care Provider Unavailab le Allergies Active Allergy Reactions Criticality Noted Date Comments Cefaclor Rash Low Metoclopramide Hcl Other (See Comments) 015 suicidal Medications DULoxetine (CYMBALTA) 30 mg Capsule, Delayed Release(E.C.) Take 1 Capsule (30 mg) by mouth 2 times daily. 60 Capsule 2 8 Active hydrOXYzine HCl (ATARAX) 25 mg tablet Take 25 mg by mouth 1 time daily as needed. 9 Active QUEtiapine (SEROquel) 25 mg tablet Take 25 mg by mouth daily. 9 Active QUEtiapine (SEROquel) 25 mg tablet TAKE 1 TABLET BY MOUTH NIGHTLY 3 9 Active sulindac (CLINORIL) 200 mg Tablet Take 200 mg by mouth 1 time daily as needed. 9 Active ondansetron (ZOFRAN ODT) 4 mg Tablet, Rapid Dissolve Place 1 Tablet (4 mg) under tongue every 6 hours as needed for Nausea/Emesis . Dissolve tablet on top of tongue, then swallow with saliva. 16 Tablet 9 Active lamoTRIgine (LaMICtal) 100 mg tablet Take 150 mg by mouth daily. Active pantoprazole (PROTONIX) 40 mg Tablet, Delayed Release (E.C.) Take 40 mg by mouth daily. Active dicyclomine (BENTYL) 10 mg capsule Take 1 Capsule (10 mg) by mouth 4 times daily. 20 Capsule 1 Active HYDROcodone-acet aminophen ([place]) 5-325 mg tabletIndication s:Abdominal pain, unspecified abdominal location Take 1 Tablet by mouth every 4 hours as needed for Pain, Moderate. Max Daily Amount: 6 Tablets 12 Tablet 1 Active prochlorperazine maleate (COMPAZINE) 10 mg tablet Take 1 Tablet (10 mg) by mouth every 6 hours as needed for Nausea. 15 Tablet 1 Active Active Problems Problem Noted Date Diagnosed Date Major depressive disorder, r ecurrent severe without psychotic features 02/03/2017 Obesity (BMI 35.0-39.9 without comorbidity) 06/23 Morbid obesity with BMI of 45.0-49.9, adult 06/23 Borderline personality disorder 07/20/2016 Abnormal urinalysis 02/02/2016 Dizziness 01/30/2016 Hyperglycemia 01/30/2016 Routine general medical exam ination at a health care facility 01/30/2016 Major depressive disorder, r ecurrent severe without psychotic features 01/29/2016 Leukemoid reaction 12/21/2015 Uses control 12/21/2015 Major depressive disorder, r ecurrent severe without psychotic features 12/21/2015 Pre-hypertension 09/03/2015 Major depressive disorder, r ecurrent, severe without psychotic features 08/31/2015 ABIOLA (generalized anxiety disorder) 08/31/2015 Tobacco abuse 08/31/2015 Chronic migraine without aura 08/31/2015 Irritable bowel syndrome without diarrhea 2015 Fibromyalgia 08/31/2015 Tobacco use 04/18/2015 primary csection 11.1, girl 04/21/2012 Active labor 04/20/2012 Abdominal cramping complicating 2011 Inc BP, swelling 36.1w 04/04/2012 PTC; rule out rupture, GDMA2 03/28/2012 uterine contractions, antepartum 012 cramping, back pain at 33.1w 03/14/2012 abd pain, wbc 16.9, gdm glyb urdie, ptc, procardia 20 x 1, IVF, rpt cbc 13 03/12/2012 Abdominal cramping complicating 2011 cramping 14.3w 11/04/2011 Migraine 03/11/2010 Affective psychosis, bipolar Unspecified adjustment reaction Abdominal Pain, Unspecified Site, EGD 05/14(jayla haddad) Immunizations Immunization Administration Dates Next Due (ADACEL/BOOSTRIX)(10 YR UP) TDAP VACCINE, 0.5ML, IM 04/25/2012 Influenza Vaccine Split PF ID 04/25/2012 Skin Test TB 04/09/2010 Family History Medical History Relation Name Comments Unknown Father Cancer Mother lymphoma is 20' s, thyroid in 40's Depression Mother Thyroid Disease Mother Healthy Sister Relation Name Status Comments Father Maternal Grandfather Alive Maternal Grandmother Alive Mother Alive Sister Alive Social History Tobacco Use Types Packs/Day Years Used Date Smoking Tobacco: Some Days Cigarettes 0.5 2 Smokeless Tobacco: Never Tobacco Cessation:Ready to Q uit: No; Counseling Given: Yes Alcohol Use Standard Drinks/Week Comments No 0 (1 standard drink = 0.6 oz pur e alcohol) Comments No Sex and Gender Information Value Date Recorded Sex Assigned at Not on file Legal Sex Female 5:20 AM AUTO ADJUDICATION SPECIALIST Gender Identity Not on file Sexual Orientation Not on file Occupation Industry Job Start Date Job End Date Not on file Not on file Not on file Not on file Last Filed Vital Signs Vital Sign Reading Time Taken Comments Blood Pressure 108/54 07/31/2020 8:00 PM AUTO ADJUDICATION SPECIALIST Pulse 72 07/31/2020 8:00 PM AUTO ADJUDICATION SPECIALIST Temperature 36.7 C (98.1 F) 07/31/2020 8:36 PM AUTO ADJUDICATION SPECIALIST Respiratory Rate 18 07/31/2020 7:00 PM AUTO ADJUDICATION SPECIALIST Oxygen Saturation 95% 07/31/2020 8:00 PM AUTO ADJUDICATION SPECIALIST Inhaled Oxygen Concentration - - Weight 108.9 kg (240 lb) 07/31/2020 4:15 PM AUTO ADJUDICATION SPECIALIST Height 167.6 cm (5' 6) 07/31/2020 4:15 PM AUTO ADJUDICATION SPECIALIST Body Mass Index 38.74 07/31/2020 4:15 PM AUTO ADJUDICATION SPECIALIST Plan of Treatment Health Maintenance Due Date Last Done Comments HPV VACCINES (1 - 3-dose series) 2005 HEPATITIS B VACCINES (1 of 3 - 19+ 3-dose series) 2009 HPV/Cotest (21-29) 05/31/2020 05/31/2015 CERVICAL CANCER SCREENING 2020 HPV/Cotest (30-65) 2020 05/31/2015 PAP SMEAR 2020 05/31/2015 DTAP/TDAP/TD VACCINES (3 - T d or Tdap) 04/25/2022 04/25/2012, 05/05/2008 INFLUENZA VACCINE (#1) 2025 5, 06/01/2014, 04/25/2012 Procedures Procedure Name Priority Date/Time Associated Diagnosis Comments CERV/VAG CYTO SCREEN PAP RLFX HPV Routine 05/31/2015 Well woman exam with routine gynecological exam from Last 3 Months or Most Recently Relevant to Health Maintenance Results * CERV/VAG CYTOPATH, THIN PREP IMAGR RFLX HPV (CP) (05/31/2015) Endocervical Charlotte Norman NP PATHOLOGY/CYTOLOGY ORDERABLES Final Result EXTERNAL LAB from Last 3 Months or Most Recently Relevant to Health Maintenance Insurance [facility] [id number] [facility] MEDICA[facility] Advance Directives For more information, please contact: [phone] * Full Code (Latest Code Status on File) Date Activated Date Inactivated Comments 07/07/2017 10:36 PM 07/13/2017 2:26 PM * Full Code Date Activated Date Inactivated Comments 02/02/2017 11:21 PM 02/08/2017 3:36 PM * Full Code Date Activated Date Inactivated Comments 12/20/2015 10:11 PM 12/23/2015 11:47 PM * Full Code Date Activated Date Inactivated Comments 08/31/2015 3:05 AM 09/03/2015 6:32 PM * Full Code Date Activated Date Inactivated Comments 08/31/2015 3:04 AM 08/31/2015 3:05 AM Care Teams Planogrammer Relationship Specialty Start Date End Date Esme Mercado MD PCP - General Family Practice 09/06/14
--- OUTSIDE RECORDS SUMMARY | 2025-01-26 13:39 | XMS_ITS | Encounter Summary ---
Author Organization [employer] Address [address] [place] [address] Care Team Providers Care Metal Drill Operator Name Role Phone Esme Mercado MD Primary Care Provider Unavailab le Encounter Details Date Type Department Care Team (Late st Contact Info) Description 09/27/2003 Outpatient Historical [facility] John Saenz MD [address] [place] [address] ABDOMINAL PAIN UNSPEC SITE (Primary Dx) Social History Tobacco Use Types Packs/Day Years Used Date Smoking Tobacco: Never Assessed Comments Unknown Sex and Gender Information Value Date Recorded Sex Assigned at Not on file Legal Sex Female 5:20 AM PLUG SHAPER HAND Gender Identity Not on file Sexual Orientation Not on file documented as of this encounter Plan of Treatment Not on file documented as of this encounter Visit Diagnoses Diagnosis Abdominal pain, unspecified site- Primary documented in this encounter Care Teams Metal Drill Operator Relationship Specialty Start Date End Date Esme Mercado MD PCP - General Family Practice 09/06/14 documented as of this encounter
--- OUTSIDE RECORDS SUMMARY | 2025-01-26 13:39 | XMS_ITS | Encounter Summary ---
Author Organization [employer] Address [address] [place] [address] Care Team Providers Care Dimpling Machine Operator Name Role Phone Esme Mercado MD Primary Care Provider Unavailab le Encounter Details Date Type Department Care Team (Latest Contact Info) Description 07/06/2003 Outpatient Historical [facility] Gabriele Fiore MD NO ADDRESS ON FILE LOWER LEG INJURY NOS (Primary Dx) Social History Tobacco Use Types Packs/Day Years Used Date Smoking Tobacco: Never Assessed Comments Unknown Sex and Gender Information Value Date Recorded Sex Assigned at Not on file Legal Sex Female 5:20 AM VOCATIONAL INSTRUCTOR Gender Identity Not on file Sexual Orientation Not on file documented as of this encounter Plan of Treatment Not on file documented as of this encounter Visit Diagnoses Diagnosis Injury, other and unspecified, knee, leg, ankle, and foot- Primary documented in this encounter Care Teams Dimpling Machine Operator Relationship Specialty Start Date End Date Esme Mercado MD PCP - General Family Practice 09/06/14 documented as of this encounter
--- OUTSIDE RECORDS SUMMARY | 2025-01-26 13:39 | XMS_ITS | Encounter Summary ---
Author Organization [employer] Address [address] [place] [address] Care Team Providers Care Sleeve Sewer Name Role Phone Esme Mercado MD Primary Care Provider Unavailab le Encounter Details Date Type Department Care Team (Latest Contact Info) Description 11/26/2004 Outpatient Historical [facility] Kumar Gonzalez MD [address] [place] [phone] ABDOMINAL PAIN UNSPEC SITE (Primary Dx) Social History Tobacco Use Types Packs/Day Years Used Date Smoking Tobacco: Never Assessed Comments Unknown Sex and Gender Information Value Date Recorded Sex Assigned at Not on file Legal Sex Female 5:20 AM PHOTOVOLTAIC SUBCONTRACTOR Gender Identity Not on file Sexual Orientation Not on file documented as of this encounter Plan of Treatment Not on file documented as of this encounter Visit Diagnoses Diagnosis Abdominal pain, unspecified site- Primary documented in this encounter Care Teams Sleeve Sewer Relationship Specialty Start Date End Date Esme Mercado MD PCP - General Family Practice 09/06/14 documented as of this encounter
--- OUTSIDE RECORDS SUMMARY | 2025-01-26 13:39 | XMS_ITS | Encounter Summary ---
Author Organization [email or web address] [facility] Address [address] [place] [address] Care Team Providers Care Security Checker Name Role Phone Esme Mercado MD Primary Care Provider Unavailab le Encounter Details Date Type Department Care Team (Late st Contact Info) Description 09/11/2003 Outpatient [facility] Program Family Therapy [address] [place] [phone] Linda Alcala Social History Tobacco Use Types Packs/Day Years Used Date Smoking Tobacco: Never Assessed Comments Unknown Sex and Gender Information Value Date Recorded Sex Assigned at Not on file Legal Sex Female 5:20 AM FLIGHT ATTENDANT Gender Identity Not on file Sexual Orientation Not on file documented as of this encounter Plan of Treatment Not on file documented as of this encounter Visit Diagnoses Not on filedocumented in this encounter Care Teams Security Checker Relationship Specialty Start Date End Date Esme Mercado MD PCP - General Family Practice 09/06/14 documented as of this encounter
--- OUTSIDE RECORDS SUMMARY | 2025-01-26 13:39 | XMS_ITS | Encounter Summary ---
Author Organization [employer] Address [address] [place] [address] Care Team Providers Care Global Human Resources Director Name Role Phone Esme Mercado MD Primary Care Provider Unavailab le Encounter Details Date Type Department Care Team (Late st Contact Info) Description 10/06/2002 Emergency [facility] Elmer Adamson MD NO ADDRESS ON FILE Er, Authorized P NO ADDRESS ON FILE ABDOMINAL PAIN OTHER SPEC SITE (Primary Dx) Social History Tobacco Use Types Packs/Day Years Used Date Smoking Tobacco: Never Assessed Comments Unknown Sex and Gender Information Value Date Recorded Sex Assigned at Not on file Legal Sex Female 5:20 AM DELIVERY HELPER Gender Identity Not on file Sexual Orientation Not on file documented as of this encounter Plan of Treatment Not on file documented as of this encounter Visit Diagnoses Diagnosis Abdominal pain, other specified site- Primary documented in this encounter Care Teams Global Human Resources Director Relationship Specialty Start Date End Date Esme Mercado MD PCP - General Family Practice 09/06/14 documented as of this encounter
--- OUTSIDE RECORDS SUMMARY | 2025-01-26 13:39 | XMS_ITS | Encounter Summary ---
Author Organization [employer] Address [address] [place] [address] Care Team Providers Care Principal Programmer Name Role Phone Esme Mercado MD Primary Care Provider Unavailab le Encounter Details Date Type Department Care Team (Late st Contact Info) Description 09/25/2004 Outpatient Historical [facility] John Saenz MD [address] [place] [address] ABDOMINAL PAIN UNSPEC SITE (Primary Dx) Social History Tobacco Use Types Packs/Day Years Used Date Smoking Tobacco: Never Assessed Comments Unknown Sex and Gender Information Value Date Recorded Sex Assigned at Not on file Legal Sex Female 5:20 AM KIER DRIER Gender Identity Not on file Sexual Orientation Not on file documented as of this encounter Plan of Treatment Not on file documented as of this encounter Visit Diagnoses Diagnosis Abdominal pain, unspecified site- Primary documented in this encounter Care Teams Principal Programmer Relationship Specialty Start Date End Date Esme Mercado MD PCP - General Family Practice 09/06/14 documented as of this encounter
--- OUTSIDE RECORDS SUMMARY | 2025-01-26 13:39 | XMS_ITS | Encounter Summary ---
Author Organization [facility] Address [address] [place] [address] Care Team Providers Care Outside Barrel Lathe Operator Name Role Phone Esme Mercado MD Primary Care Provider Unavailab le Encounter Details Date Type Department Care Team (Late st Contact Info) Description 01/11/2004 Outpatient Historical [facility] [address] [place] [address] [address] [place] [address] John Milton MD [address] [place] [address] Social History Tobacco Use Types Packs/Day Years Used Date Smoking Tobacco: Never Assessed Comments Unknown Sex and Gender Information Value Date Recorded Sex Assigned at Not on file Legal Sex Female 5:20 AM TRANSMISSION SPECIALIST Gender Identity Not on file Sexual Orientation Not on file documented as of this encounter Plan of Treatment Not on file documented as of this encounter Visit Diagnoses Not on filedocumented in this encounter Care Teams Outside Barrel Lathe Operator Relationship Specialty Start Date End Date Esme Mercado MD PCP - General Family Practice 09/06/14 documented as of this encounter
--- OUTSIDE RECORDS SUMMARY | 2025-01-26 13:39 | XMS_ITS | Encounter Summary ---
Author Organization [employer] [facility] Address [address] [place] [address] Care Team Providers Care Pigskin Trimmer Name Role Phone Esme Mercado MD Primary Care Provider Unavailab le Encounter Details Date Type Department Care Team (Late st Contact Info) Description 09/11/2003 Outpatient [facility] Program Family Therapy [address] [place] [phone] Linda Alcala Social History Tobacco Use Types Packs/Day Years Used Date Smoking Tobacco: Never Assessed Comments Unknown Sex and Gender Information Value Date Recorded Sex Assigned at Not on file Legal Sex Female 5:20 AM CLINICAL REHABILITATION LIAISON Gender Identity Not on file Sexual Orientation Not on file documented as of this encounter Plan of Treatment Not on file documented as of this encounter Visit Diagnoses Not on filedocumented in this encounter Care Teams Pigskin Trimmer Relationship Specialty Start Date End Date Esme Mercado MD PCP - General Family Practice 09/06/14 documented as of this encounter
--- OUTSIDE RECORDS SUMMARY | 2025-01-26 13:39 | XMS_ITS | Encounter Summary ---
Author Organization [facility] Address [address] [place] [address] Care Team Providers Care Retail Leasing Agent Name Role Phone Esme Mercado MD Primary Care Provider Unavailab le Encounter Details Date Type Department Care Team (Late st Contact Info) Description 11/04/2004 Outpatient [facility] Family Medicine [address] [place] [phone] Ilda Tello MD [address] [place] [address] Social History Tobacco Use Types Packs/Day Years Used Date Smoking Tobacco: Never Assessed Comments Unknown Sex and Gender Information Value Date Recorded Sex Assigned at Not on file Legal Sex Female 5:20 AM E/M ENGINEER Gender Identity Not on file Sexual Orientation Not on file documented as of this encounter Plan of Treatment Not on file documented as of this encounter Visit Diagnoses Not on filedocumented in this encounter Care Teams Retail Leasing Agent Relationship Specialty Start Date End Date Esme Mercado MD PCP - General Family Practice 09/06/14 documented as of this encounter
--- OUTSIDE RECORDS SUMMARY | 2025-01-26 13:39 | XMS_ITS | Encounter Summary ---
Author Organization [employer] Address [address] [place] [address] Care Team Providers Care Staffing Clerk Name Role Phone Esme Mercado MD Primary Care Provider Unavailab le Encounter Details Date Type Department Care Team (Latest Contact Info) Description 09/30/2004 Outpatient Historical [facility] Grayson Anthonybeatris STOMACH FUNCTION DIS NEC (Primary Dx) Social History Tobacco Use Types Packs/Day Years Used Date Smoking Tobacco: Never Assessed Comments Unknown Sex and Gender Information Value Date Recorded Sex Assigned at Not on file Legal Sex Female 5:20 AM WAREHOUSE CHECKER Gender Identity Not on file Sexual Orientation Not on file documented as of this encounter Plan of Treatment Not on file documented as of this encounter Procedures Procedure Name Priority Date/Time Associated Diagnosis Comments TRANSGLUTAMINASE IGA ANTIBODY Routine 09/30/2004 11:41 AM CDT TSH Routine 09/30/2004 11:41 AM CDT GGT Routine 09/30/2004 11:41 AM CDT HEPATIC FUNCTION PANEL Routine 5 11:41 AM CDT documented in this encounter Results * TRANSGLUTAMINASE IGA ANTIBODY (09/30/2004 11:41 AM CDT) TRANSGLUTAMINASE IGA AB <3 <5 U/mL INTERFACE SYSTEM Comment: Reference range: <5 U/mL Negative 5-8 U/mL Equivocal >8 U/mL Positive Lab test performed by: [employer] [facility] [address] [place], [place] LORI BAEZA MD 09/30/2004 11:4 1 AM CDT us Viraine Weerasooriya CHEMISTRY ORDERABLES Final Result Performing Organization Address [facility] Phone Number INTERFACE SYSTEM Refer to clinic/hospital department * TSH (09/30/2004 11:41 AM CDT) TSH 1.39 0.27 - 4.20 uU/mL INTERFACE SYSTEM 09/30/2004 11:4 1 AM CDT us Viraine Weerasooriya CHEMISTRY ORDERABLES Final Result Performing Organization Address [facility] Phone Number INTERFACE SYSTEM Refer to clinic/hospital department * GGT (09/30/2004 11:41 AM CDT) GGT 23 4 - 24 U/L INTERFACE SYSTEM 09/30/2004 11:4 1 AM CDT us Viraine Weerasooriya CHEMISTRY ORDERABLES Final Result Performing Organization Address [facility] Phone Number INTERFACE SYSTEM Refer to clinic/hospital department * (ABNORMAL) HEPATIC FUNCTION PANEL (09/30/2004 11:41 AM CDT) AST 23 12 - 32 U/L INTERFACE SYSTEM ALKALINE PHOSPHATASE 81 35 - 187 U/L INTERFACE SYSTEM BILIRUBIN TOTAL 0.3 0.2 - 1.0 mg/dL INTERFACE SYSTEM ALBUMIN 4.3 3.8 - 5.4 g/dL INTERFACE SYSTEM TOTAL PROTEIN 7.5 6.3 - 8.6 g/dL INTERFACE SYSTEM ALT 32(H) 0 - 31 U/L INTERFACE SYSTEM BILIRUBIN DIRECT 0.1 0.0 - 0.3 mg/dL INTERFACE SYSTEM 09/30/2004 11:4 1 AM CDT us Judy Galicia CHEMISTRY ORDERABLES Final Result INTERFACE SYSTEM Refer to clinic/hospital department documented in this encounter Visit Diagnoses Diagnosis Dyspepsia and other specified disorders of function of stomach- Primary documented in this encounter Care Teams Staffing Clerk Relationship Specialty Start Date End Date Esme Mercado MD PCP - General Family Practice 09/06/14 documented as of this encounter
--- OUTSIDE RECORDS SUMMARY | 2025-01-26 13:40 | XMS_ITS | Encounter Summary ---
Author Organization [facility] Address [address] [place] [address] Care Team Providers Care Air Conditioner Installer Helper Name Role Phone Esme Mercado MD Primary Care Provider Unavailab le Encounter Details Date Type Department Care Team (Late st Contact Info) Description 06/01/2007 Outpatient Historical [facility] [address] [phone] Tran Ferrer MD NO ADDRESS ON FILE Social History Tobacco Use Types Packs/Day Years Used Date Smoking Tobacco: Never Assessed Comments Unknown Sex and Gender Information Value Date Recorded Sex Assigned at Not on file Legal Sex Female 5:20 AM [place] GOLD ATTENDANT Gender Identity Not on file Sexual Orientation Not on file documented as of this encounter Plan of Treatment Not on file documented as of this encounter Visit Diagnoses Not on filedocumented in this encounter Care Teams Air Conditioner Installer Helper Relationship Specialty Start Date End Date Esme Mercado MD PCP - General Family Practice 09/06/14 documented as of this encounter
--- OUTSIDE RECORDS SUMMARY | 2025-01-26 13:40 | XMS_ITS | Encounter Summary ---
Author Organization [facility] Address [address] [place] [address] Care Team Providers Care Fiber Technologist Name Role Phone Esme Mercado MD Primary Care Provider Unavailab le Encounter Details Date Type Department Care Team (Late st Contact Info) Description 05/22/2005 Outpatient Historical [facility] Childrens Surgery [address] [place] [address] Zack Hurt MD NO ADDRESS ON FILE Social History Tobacco Use Types Packs/Day Years Used Date Smoking Tobacco: Never Assessed Comments Unknown Sex and Gender Information Value Date Recorded Sex Assigned at Not on file Legal Sex Female 5:20 AM GEAR MACHINIST Gender Identity Not on file Sexual Orientation Not on file documented as of this encounter Plan of Treatment Not on file documented as of this encounter Visit Diagnoses Not on filedocumented in this encounter Care Teams Fiber Technologist Relationship Specialty Start Date End Date Esme Mercado MD PCP - General Family Practice 09/06/14 documented as of this encounter
--- OUTSIDE RECORDS SUMMARY | 2025-01-26 13:40 | XMS_ITS | Encounter Summary ---
Author Organization [facility] Address [address] [place] [address] Care Team Providers Care Ham Facer Name Role Phone Esme Mercado MD Primary Care Provider Unavailab le Encounter Details Date Type Department Care Team (Late st Contact Info) Description 03/31/2007 Outpatient Historical [facility] [place] [facility] Family Medicine [address] [place] [phone] Ilda Tello MD [address] [place] [address] Social History Tobacco Use Types Packs/Day Years Used Date Smoking Tobacco: Never Assessed Comments Unknown Sex and Gender Information Value Date Recorded Sex Assigned at Not on file Legal Sex Female 5:20 AM WATER SERVICE SUPERVISOR Gender Identity Not on file Sexual Orientation Not on file documented as of this encounter Plan of Treatment Not on file documented as of this encounter Visit Diagnoses Not on filedocumented in this encounter Care Teams Ham Facer Relationship Specialty Start Date End Date Esme Mercado MD PCP - General Family Practice 09/06/14 documented as of this encounter
--- OUTSIDE RECORDS SUMMARY | 2025-01-26 13:40 | XMS_ITS | Encounter Summary ---
Author Organization [facility] Address [address] [place] [address] Care Team Providers Care Technical Assistant Name Role Phone Esme Mercado MD Primary Care Provider Unavailab le Encounter Details Date Type Department Care Team (Late st Contact Info) Description 09/02/2007 Outpatient [facility] Family Medicine [address] 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 Gender Identity Not on file Sexual Orientation Not on file documented as of this encounter Plan of Treatment Not on file documented as of this encounter Procedures Procedure Name Priority Date/Time Associated Diagnosis Comments TSH REFLEXIVE Routine 09/03/2007 7:00 AM CDT CBC WITH DIFFERENTIAL Routine 09/03/2007 7:00 AM CDT LIPID PANEL Routine 09/03/2007 7:00 AM CDT COMPREHENSIVE METABOLIC PANEL Routine 09/03/2007 7:00 AM CDT documented in this encounter Results * COMPREHENSIVE METABOLIC PANEL (09/03/2007 7:00 AM CDT) Pathologist [facility] GLUCOSE 76 65 - 99 mg/dL [facility] Comment:FASTING REFERENCE IN TERVAL BUN 10 7 - 20 mg/dL [facility] CREATININE 0.70 0.50 - 1.20 mg/dL [facility] [employer] [facility] Comment:PATIENT IS <18 YEARS OLD. UNABLE TO CALCULATE EGFR. BUN/CREAT RATIO 14 6 - 22 (calc) [facility] SODIUM 137 135 - 146 mmol/L [facility] POTASSIUM 4.3 3.8 - 5.1 mmol/L [facility] . [facility] CHLORIDE 108 98 - 110 mmol/L [facility] [employer] . [facility] CO2 22 21 - 33 mmol/L [facility] . [facility] CALCIUM 9.5 8.9 - 10.4 mg/dL [facility] [employer] [facility] TOTAL PROTEIN 7.0 6.3 - 8.2 g/dL [facility] ALBUMIN 4.2 3.6 - 5.1 g/dL [facility] GLOBULIN 2.8 2.0 - 3.8 g/dL (calc) [facility] ALBUMIN/GLOBULIN RATIO 1.5 1.0 - 2.1 (calc) [facility] BILIRUBIN TOTAL 0.5 0.2 - 1.1 mg/dL [facility] ALKALINE PHOSPHATASE 52 47 - 176 U/L [facility] AST 20 12 - 32 U/L [facility]. [facility] ALT 15 5 - 32 U/L [facility] [employer] [facility] Comment: Test Performed at: [employer] [place] [address] [place] [address] AVERY PRESSLEY MD Narrative [facility] - 09/03/2007 7:00 AM CDT Ordered by CYNTHIA ACKERMAN us Historical Provider CHEMISTRY ORDERABLES Final R esult [facility] [address] [place] [address] * (ABNORMAL) LIPID PANEL (09/03/2007 7:00 AM CDT) [facility] TRIGLYCERIDE 169(H) 40 - 136 mg/dL [facility] Comment: Test Performed at: [employer] [address] [place] [address] AVERY PRESSLEY MD CHOLESTEROL 265(H) 125 - 170 mg/dL [facility] HDL 52 36 - 76 mg/dL [facility] CALCULATED LDL CHOLESTEROL 179(H) <110 mg/dL (calc) [facility] Comment: DESIRABLE RANGE <100 MG/DL FOR PATIENTS WITH CHD OR DIABETES AND <70 MG/DL FOR DIABETIC PATIENTS WITH KNOWN HEART DISEASE. CHOL/HDL RATIO 5.1(H) < OR = 5.0 (calc) [facility] Narrative [facility] - 09/03/2007 7:00 AM CDT Ordered by CYNTHIA ACKERMAN Historical Provider CHEMISTRY ORDERABLES Final R esult Performing Organization Address [facility] [place] [address] * TSH WITH REFLEX FT4 (09/03/2007 7:00 AM CDT) Pathologist [facility] TSH, ULTRASENSITIVE 0.82 mIU/L [facility] Comment: REFERENCE RANGE: 1-19 YEARS: 0.50-4.30 RANGES FIRST TRIMESTER 0.20-4.70 SECOND TRIMESTER 0.30-4.10 THIRD TRIMESTER 0.40-2.70 REPORT COMMENT: FASTING Test Performed at: [facility] [employer] [address] [place] [phone] AVERY PRESSLEY MD Narrative [facility] - 09/03/2007 7:00 AM CDT Ordered by CYNTHIA ACKERMAN us Historical Provider CHEMISTRY ORDERABLES Edited Performing Organization Address [facility] [place] [address] * CBC WITH DIFFERENTIAL (09/03/2007 7:00 AM CDT) [facility] WBC 9.1 4.5 - 13.0 Thousand/u L [facility] RBC 4.44 3.80 - 5.10 Million/uL [facility] HEMOGLOBIN 13.6 11.5 - 15.3 g/dL [facility] HEMATOCRIT 39.1 34.0 - 46.0 % [facility] MCV 88.1 78.0 - 98.0 fL [facility] MCH 30.5 25.0 - 35.0 pg [facility] . [place] MCHC 34.6 31.0 - 36.0 g/dL [facility] . [place] RDW 13.6 11.0 - 15.0 % [facility] . [place] PLATELETS 353 140 - 400 Thousand/u L [facility] Comment: Test Performed at: [facility] [address] [place] [address] AVERY PRESSLEY MD Narrative [facility] - 09/03/2007 7:00 AM CDT Ordered by CYNTHIA ACKERMAN us Historical Provider HEMATOLOGY ORDERABLES Edited [facility] [address] [place] [address] documented in this encounter Visit Diagnoses Diagnosis Other malaise and fatigue documented in this encounter Care Teams Technical Assistant Relationship Specialty Start Date End Date Esme Mercado MD PCP - General Family Practice 09/06/14 documented as of this encounter
--- OUTSIDE RECORDS SUMMARY | 2025-01-26 13:40 | XMS_ITS | Encounter Summary ---
Author Organization [facility] Address [address] [place] [address] Care Team Providers Care Computer Artist Name Role Phone Esme Mercado MD Primary Care Provider Unavailab le Encounter Details Date Type Department Care Team (Late st Contact Info) Description 10/27/2006 Outpatient [facility] Family Medicine [address] 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
--- OUTSIDE RECORDS SUMMARY | 2025-01-26 13:40 | XMS_ITS | Encounter Summary ---
Author Organization [facility] Address 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
--- OUTSIDE RECORDS SUMMARY | 2025-01-26 13:40 | XMS_ITS | Encounter Summary ---
Author Organization [facility] Address [address] [place] [address] Care Team Providers Care News Anchor Name Role Phone Esme Mercado MD Primary Care Provider Unavailab le Encounter Details Date Type Department Care Team (Late st Contact Info) Description 10/27/2006 Outpatient Historical [facility] Family Medicine [address] 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
--- OUTSIDE RECORDS SUMMARY | 2025-01-26 13:40 | XMS_ITS | Clinical Summary ---
Author Organization [facility] Address [address] [place] [address] Care Team Providers Care Cotton Tipper Name Role Phone Meliza Eastman MD Primary Care Pr ovider Allergies Active Allergy Reactions Criticality Noted Date Comments Cefaclor Rash Medium Reaction: Rash, , , Metoclopramide Mental status changes Low Qkxjptr-Tgq-Jgf Reductase Inhibitors Stomach upset Low 09/21/2020 Medications traZODone (DESYREL) 50 mg tablet Take 50 mg by mouth as needed for sleep 1 Active fluticasone propionate (FLONASE) 50 mcg/actuation nasal spray Administer 1 spray into each nostril daily 1 Active cyclobenzaprine (FLEXERIL) 10 mg tabletIndications: Acute bilateral low back pain without sciatica Take 1 tablet (10 mg total) by mouth 2 (two) times a day as needed for muscle spasms 14 tablet 2 Active ondansetron ODT (ZOFRAN-ODT) 4 mg disintegrating tablet Dissolve 1 tablet oral every 6 hours as needed for nausea or vomiting. 15 tablet 2 Active hyoscyamine (LEVSIN) 0.125 mg SL tabletIndications: Urinary Incontinence Take 1 tablet (0.125 mg total) by mouth every 4 (four) hours as needed for cramping 30 tablet [address] (CYMBALTA) 30 mg capsule Take 1 capsule (30 mg total) by mouth daily 30 capsule [address] (CYMBALTA) 60 mg capsule Take 1 capsule (60 mg total) by mouth daily with dinner 30 capsule [address] (PROTONIX) 40 mg EC tablet Take 1 tablet (40 mg total) by mouth daily 30 tablet 2 Active Active Problems Problem Noted Date Diagnosed Date Nausea 09/17/2021 Assessment & Plan (09/17/2021 1:18 PM CDT): Patient has ongoing nausea and intermittent bowel changes Will refer to GI Will check blood work Acute bilateral low back pain without sciatica 0 02/20/2021 Assessment & Plan (09/17/2021 1:06 PM CDT): patient complains of low back pain, woke up one morning with this 3 weeks ago . Is not changing but is not getting better. No known injury . Does have history of Degenerative disc disease Assessment & Plan (02/20/2021 1:40 PM CDT): Patient complains of low back pain for the last week. She tried vicodin , tylenol and antiinflammatory for pain all that she had at home that did not help. Suspect muscle spasm in the back will treat with Steroid and muscle relaxer . Follow up if not improvement Gastroesophageal reflux disease without esophagi tis 01/20/2021 Assessment & Plan (01/20/2021 3:23 PM CDT): Condition is currently unchanged. The patient is on protonix 40mg daily . Will continue at this time. Migraine with aura and witho ut status migrainosus, not intractable 01/20/2021 Assessment & Plan (01/20/2021 3:53 PM CDT): Patient lemon 2-3 migraines a Month. She has taken imitrex in the past and did not feel like this helps. She does take Excedrin at times. Will try maxalt. Discussed side effects of medication. Tobacco use 01/20/2021 Assessment & Plan (01/20/2021 3:52 PM CDT): Patient continues to smoke and is interested in quitting cigarettes. Discussed treatment options including Chantix which she is open to try. We discussed at length the side effects of medication. She will let me know if she is able to pick this up from the pharmacy. Hepatic steatosis 10/23/2020 Assessment & Plan (10/23/2020 11:17 AM CDT): Noted hepatic steatosis on CT 02/20/2020 and recently on 09/21/2020 described as mild hepatic steatosis/fatty liver. Blood test to rule out liver disease. Testing takes approximately 7-10 days to return I will give you feedback afterwards if you see some positives and negatives do not be alarmed. Fatty liver is a reversible condition target 10% of current body weight loss. Office visit follow-up after procedures patient will need a liver ultrasound in 6 months for follow-up. Family history of Crohn's disease 10/23/2020 Assessment & Plan (10/23/2020 11:22 AM CDT): Family history of Crohn's disease in maternal cousin she was diagnosed at the age of 16. Visceral hypersensitivity syndrome 10/23/2020 Assessment & Plan (10/23/2020 11:10 AM CDT): Questionable visceral hypersensitivity syndrome with tenderness around the entire abdomen. Okay to keep trying in taking as needed Bentyl/dicyclomine 2-3 times daily for pain. BRBPR (bright red blood per rectum) 10/23/2020 Assessment & Plan (10/23/2020 11:28 AM CDT): Noted bright red blood per rectum on toilet tissue and toilet water lastly 4 months ago. Colonoscopy will be scheduled to determine the cause of the lower gastrointestinal bleeding. The differential diagnosis includes but is not limited to diverticulosis, microscopic colitis, colonic polyps, hemorrhoids, infectious colitis, rectal ulcer, ulcerative colitis, colonic neoplasms. Intractable vomiting with nausea 10/23/2020 Assessment & Plan (10/23/2020 11:23 AM CDT): Noted history of nausea and vomiting associated with generalized abdominal pain and cramping followed by diarrhea. See plan for constipation, irritable bowel syndrome with predominant diarrhea and constipation. We recommend scheduling an Upper Endoscopy (EGD). The differential diagnosis includes but is not limited to duodenal ulcer, gastric ulcer, gastritis (inflammation/irritation of the stomach lining), esophageal ulcerations, stomach polyps, neoplasms. During the procedure biopsy may be taken to rule out H. Pylori infection in the stomach. If you start taking any anticoagulants or blood thinners please let us know as soon as possible. Upper Endoscopy procedure risks, benefits and alternatives have been discussed with the patient. Prior to upper endoscopy patients are tested for COVID-19 you will get a phone call with instructions from the hospital nurses. Increase Protonix to 40 mg daily 30-60 minutes before the biggest meal of the day. Pepcid/famotidine 20 mg as needed. See plan for constipation. Marijuana use 10/23/2020 Assessment & Plan (10/23/2020 12:37 PM CDT): Daily marijuana use. 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 Cannabis handout. Seasonal allergies 10/03/2020 Overview (10/03/2020): pollen, mold BMI 39.0-39.9,adult 10/03/2020 Assessment & Plan (10/23/2020 11:15 AM CDT): Weight today is 246 lb with a BMI of 39.7. Maintain healthy weight and diet. Office visit follow-up after procedures, will consider weight management program out patiently. Assessment & Plan (10/03/2020 3:34 PM CDT): BMI Follow-up includes: monitor exercise activity/diet. 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 Discussed the patient's BMI. The BMI is above average; BMI management plan is completed. General weight loss/lifestyle modification strategies discussed (elicit support from others; identify saboteurs; non-food rewards, etc). Anxiety 10/20/2018 Overview (10/03/2020): Hydroxyzine is not helping. Will have her start Buspar 5mg, titrating up to TID. Hydroxyzine is not helping. Will have her start Buspar 5mg, titrating up to TID. Leukocytosis 11/03/2016 Overview (10/03/2020): Leukocytosis Overview: Leukocytosis Assessment & Plan (10/23/2020 11:22 AM CDT): Mild leukocytosis seen on blood work lastly 09/21/2020. Repeat CBC. Borderline personality disorder 07/20/2016 Hyperglycemia 01/30/2016 Uses control 12/21/2015 Pre-hypertension 09/03/2015 Irritable bowel syndrome wit h both constipation and diarrhea 08/31/2015 Overview (10/03/2020): Trial of Questran to help. Increasing Cymbalta may help with mood which in turn may help her IBS. Trial of Questran to help. Increasing Cymbalta may help with mood which in turn may help her IBS. Assessment & Plan (10/23/2020 11:21 AM CDT): Ongoing pattern of his diarrhea associated with abdominal pain, nausea vomiting. Noted constipation x-ray KUB on 07/31/2020. Please start taking a daily fiber supplement such as 1 tbsp full of Metamucil, other fiber supplements again choose from are FiberCon, Benefiber or Citrucel. In addition to that if you are seeing some harder pebbly stools take vlbu-upk-truqnsa MiraLax half a cap full Wednesday. The goal is soft stool [place] stool chart 3, 4, 5. Keep in mind he takes 2-3 weeks at least to get into a normal regimen with any changes in bowel schedule. Office visit follow-up after procedures. Chronic migraine without aura 08/31/2015 ABIOLA (generalized anxiety disorder) 08/31/2015 Severe episode of recurrent major depressive disorder, without psychotic features 08/31/2015 Assessment & Plan (01/20/2021 3:51 PM CDT): Condition is unchanged.She is followed by psychiatrist. Recommend she continue current treatment - lamictal, trazodone, and cymbalta. Primary fibromyalgia syndrome 07/22/2015 Overview (10/03/2020): Primary fibromyalgia syndrome Overview: Primary fibromyalgia syndrome Tobacco user 04/18/2015 Assessment & Plan (10/23/2020 11:22 AM CDT): Patient uses tobacco. Please avoid. Moderate episode of recurrent major depressive d isorder 08/27/2014 Overview (09/25/2016): Anxiety and depression Migraine 02/23/2014 Overview (09/25/2016): Migraine Chronic abdominal pain 02/07/2009 Overview (10/03/2020): Other chronic pain Overview: Other chronic pain Assessment & Plan (10/23/2020 11:15 AM CDT): Ongoing chronic abdominal pain approximately since fall 2019 starting in epigastric region in radiating down to lower abdomen. OBGYN recommended to rule out endometriosis. Questionable pattern of constipation given recent x-ray KUB completed 07/31/2020 at [facility] compatible with constipation. See plan for constipation. See plan for nausea and vomiting. Office visit follow-up after procedures. Increase Protonix to 40 mg daily 30-60 minutes before the biggest meal of the day on empty stomach until upper endoscopy. For breakthrough complains of upper abdominal pain take as needed Pepcid/famotidine 20 mg daily [id number]. We recommend scheduling an Upper Endoscopy (EGD). The differential diagnosis includes but is not limited to duodenal ulcer, gastric ulcer, gastritis (inflammation/irritation of the stomach lining), esophageal ulcerations, stomach polyps, neoplasms. During the procedure biopsy may be taken to rule out H. Pylori infection in the stomach. If you start taking any anticoagulants or blood thinners please let us know as soon as possible. Upper Endoscopy procedure risks, benefits and alternatives have been discussed with the patient. Prior to upper endoscopy patients are tested for COVID-19 you will get a phone call with instructions from the hospital nurses. Check TTG/IgA to rule out gluten allergy. Resolved Problems Problem Noted Date Diagnosed Date Resolved Date Morbid obesity 01/12/2017 04/01/2018 Assessment & Plan (09/06/2017 2:58 PM CDT): Obesity is unchanged. Discussed the patient's BMI. The BMI is above average; BMI management plan is completed. General weight loss/lifestyle modification strategies discussed (elicit support from others; identify saboteurs; non-food rewards, etc). Assessment & Plan (01/12/2017 8:44 AM CDT): Obesity is unchanged. Discussed the patient's BMI. The BMI is above average; no BMI management plan is appropriate. General weight loss/lifestyle modification strategies discussed (elicit support from others; identify saboteurs; non-food rewards, etc). Diet interventions: low calorie (1000 kCal/d) deficit diet. Informal exercise measures discussed, e.g. taking stairs instead of elevator. Regular aerobic exercise program discussed. Morbid obesity with BMI of 45.0-49.9, adult 07/20/2016 10/23/2020 Overview (10/03/2020): Last Assessment & Plan: BMI Follow-up includes: monitor exercise activity/diet. 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 Assessment & Plan (02/14/2019 2:34 PM CDT): BMI Follow-up includes: monitor exercise activity/diet. Assessment & Plan (10/20/2018 11:51 AM CDT): BMI Follow-up includes: monitor exercise activity/diet. Assessment & Plan (04/01/2018 12:00 PM CDT): BMI Follow-up includes: monitor exercise activity/diet. Assessment & Plan (09/06/2017 2:57 PM CDT): BMI Follow-up includes: monitor exercise activity/diet. Assessment & Plan (12/17/2016 5:51 PM CDT): Increase exercise activity as tolerated; continue healthy diet. Gestational diabetes mellitus (GDM) 08/27/2014 12/17/2016 Overview (09/25/2016): Gestational diabetes History of gastric ulcer 08/27/2014 Overview (09/25/2016): History of gastric ulcer Immunizations Immunization Administration Dates Next Due Influenza, Quadrivalent, Spl it, Preservative Free, Intramuscular 03/26/2015 Influenza, Trivalent, Adjuva nted, Intramuscular 06/01/2014 Influenza, Trivalent, IM (MDV) 03/21/2012 Influenza, Trivalent, Recomb inant, Egg Free, Preservative Free, Antibiotic Free, IM (FLUBLOK) 06/01/2014,06/01/2014 Influenza, Trivalent, Split, Preservative Free, Intradermal 04/25/2012 Influenza, Unspecified 08/19/2021(Deferr ed: Patient Refused),08/19/2020(Deferred: Patient Refused),05/08/2019(Deferred: Patient Refused),05/08/2019(Deferred: Patient Refused),04/13/2017,03/21/2012 Moderna SARS-CoV-2 Monovalen t Vaccination (12+ YRS) 11/26/2020,10/25/2020 Pneumococcal Polysaccharide PPV23 05/18/2012,06/2011 Tdap 04/25/2012,05/05/2008 Surgical History Surgery Date Site/Laterality Comments CHOLECYSTECTOMY SECTION Medical History Medical History Date Comments Hx Other Medical Stomach ulcer; Comments: [facility] 08/27/2014 - Gestational diabetes mellitus (GDM) Diabetes, gestational; Comments: [facility] 08/27/2014 - Hx Other Medical Anxiety; Commen ts: [facility] 08/27/2014 - Hx Other Medical 04/21/2012 ; Comm ents: [facility] 08/27/2014 - Hx Other Medical 05/16/2012 Gall bladder; C omments: [facility] 08/27/2014 - Tension headache Headache, tensi on Hx Other Medical Headache, migra ine Depression Depression Borderline personality disorder (HCC) IBS (irritable bowel syndrome) GERD (gastroesophageal reflux disease) Anemia Fibromyalgia Family History Medical History Relation Name Comments Diabetes type II Father Diabetes me llitus type 2; Hypertension Father Hypertension; Headache Mother Headaches; Heart disease Mother Hodgkin's lymphoma Mother Hodgkin's disease; Hypertension Mother Hypertension; Lymphoma Mother Lymphoma; Sjogren's syndrome Mother Thyroid cancer Mother Cancer, thyro id; Headache Other family history Headaches; ADD / ADHD Sister ADD/ADHD; Bipolar disorder Sister Thyroid disease Sister Relation Name Status Comments Father Mother Other family history Sister Social History Tobacco Use Types Packs/Day Years Used Date Smoking Tobacco: Every Day Cigarettes Smokeless Tobacco: Never Alcohol Use Standard Drinks/Week Comments Yes 0 (1 standard drink = 0.6 oz pur e alcohol) AUDIT-C Answer Date Recorded Q1: How often do you have a drink containing alc ohol? Never 01/20/2021 Average Number of Drinks Not on file 021 Q3: How often do you have si x or more drinks on one occasion? 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 Gender Identity Female 09/08/2021 3:41 PM CDT Sexual Orientation Bisexual 09/08/2021 3: 41 PM CDT Obstetrics History Para Term AB IAB SAB Ectopic Multiple Livin g Live Births 1 1 1 1 1 Date Outcome GA Total Labor Labor/2nd/3rd Weight Sex Type Anes PTL Capri A1 A5 Name Clin 012 Term 38w 4d 3.799 kg (8 lb 6 oz) F CS-LT ranv Epidur al N Livin g 9 9 ROWLA ND,GI RL1KI MBERL Y Delivery Location:[facility] Comments:No observed a nomalies Last Filed Vital Signs Vital Sign Reading Time Taken Comments Blood Pressure 154/94 12/27/2021 3:00 PM CDT Pulse 66 12/27/2021 3:45 PM CDT Temperature 36.2 C (97.1 F) 12/27/2021 2:00 PM CDT Respiratory Rate 16 12/27/2021 3:00 PM CDT Oxygen Saturation 95% 12/27/2021 3:45 PM CDT Inhaled Oxygen Concentration - - Weight 113.4 kg (250 lb) 12/27/2021 1:59 PM CDT Height 167.6 cm (5' 6) 10/09/2021 9:38 AM CDT Body Mass Index 40.35 10/09/2021 9:38 AM CDT Plan of Treatment Health Maintenance Due Date Last Done Comments Hepatitis B Screening 2008 Pneumococcal vaccine <65 (2 of 2 - PCV) 05/18/2013 05/18/2012, 03/21/2012 HPV Vaccines (1 - 3-dose SCD M series) 2017 Depression Screening 01/20/2022 01/20/2021, 10/03/2020, 10/03/2020, Additional history exists Regular Well Visit/Exam 18-64 03/13/2022 03/13/2021, 10/03/2020 DTaP/Tdap/Td Vaccine (3 - Td or Tdap) 04/25/2022 04/25/2012, 05/05/2008 Covid-19 Vaccine (3 - 2023-2 5 season) 2024 11/26/2020, 10/25/2020 Influenza Vaccine (#1) 2025 7, 03/26/2015, 06/01/2014, Additional history exists Cervical Cancer Screening 03/13/2026 03/13/2021 Hepatitis C Screening Completed 03/13/2021, 021 Varicella Vaccines Discontinued Procedures Procedure Name Priority Date/Time Associated Diagnosis Comments HEPATITIS C ANTIBODY Routine 03/13/2021 11:37 AM CDT Screen for STD (sexually transmitted disease) PAP AND HIGH RISK HPV, REFLEX TO GENOTYPING Routine 03/13/2021 11:34 AM CDT Well woman exam from Last 3 Months or Most Recently Relevant to Health Maintenance Results * Hepatitis C antibody (03/13/2021 11:37 AM CDT) Hep C Ab Nonreactive Nonreactive [facility] Comment: Interpretive Data Nonreactive: Antibodies to HCV not detected. Does NOT exclude the possibility of recent exposure to HCV. Equivocal: Equivocal for HCV antibodies. Supplemental molecular testing will be automatically performed to determine infection status in accordance with current CDC screening recommendations. Reactive: Positive for HCV antibodies. This may represent current or past HCV infection. Supplemental molecular testing will be automatically performed to determine current infection status in accordance with current CDC screening recommendations. Interpretive data was last revised on 2019. Blood 03/13/2021 11:3 7 AM CDT 03/13/2021 4:39 PM CDT Jenifer Babb MD LAB MICROBIOLOGY - GENE [facility] ORDERABLES Final Result [facility] [place] [id number] [place] [address] * Pap and High Risk HPV, reflex to Genotyping (03/13/2021 11:34 AM CDT) Swab (Pap test) 03/13/2021 1 1:34 AM CDT 03/19/2021 2:31 PM CDT Narrative PATHOLOGY [facility] - 03/20/2021 4:46 PM CDT EPIC results best viewed via link to PDF [place] [id number] [facility], [place], [place] [address] Tele: Allison Martínez MD - Plant Sprayer CYTOLOGY REPORT Note to Patients: This report may contain a detailed description of human tissue sent by a health care provider to the laboratory for pathologic evaluation. The content of this report is essential for diagnosis and may provide important critical findings. This information may be unfamiliar to patients to review without a medical professional present. It is advised that the patient review this report in the presence of a health care provider who can answer questions and explain the details. Patient Name: JUAN FRANCISCO LARSON Address: [address] [place] [address] Gender: F : 1990 (Age: 30) Service: Location: N : [id number] [facility] #: [id number] Patient [place] [facility] [place] Taken: 03/13/2021 Reported: 03/20/2021 Physician(s): Jenifer Babb M.D. FINAL DIAGNOSIS: Specimen Type: - ThinPrep Pap and HPV w/ reflex Genotyping Statement of Specimen Adequacy: Source: Cervical/Endocervical - Satisfactory for interpretation - Endocervical/Transformation zone component absent or insufficient - Case rejected by computer assisted technology and manually screened by a interlocking machine operator. General Categorization: - Negative for intraepithelial lesion or malignancy Interpretation: - Shift in pavithra suggestive of Bacterial Vaginosis sally/03/20/2021 16:46 EKATERINA Alvarado(ASCP), [facility] Report Reviewed and Electronically Signed By EKATERINA Alvarado(ASCP), [facility] Clerical Data Follow A; G0145 DIAGNOSIS COMMENT: Ancillary Testing: HPV High Risk Group (16, 18, 31, 33, 35, 39, 45, 51, 52, 56, 58, 59, 66 and 68) - Not Detected Reference Range: Not Detected This test was performed using the [facility] [place] 4800 CLINICAL DIAGNOSIS AND HISTORY Last Menstrual Period: 02-13-21 Menstrual History: Contraceptive History: No Other Clinical Conditions: Yes: 2010 pos HPV REPORT IMAGES AND/OR SCANNED DOCUMENTS ONLY VIEWABLE IN PDF FORMAT The Pap test is a screening test used to aid in the detection of cervical cancer and its precursors. It should not be the sole means by which malignant and premalignant lesions are diagnosed. Both false negative and false positive results may occur. It also has poor sensitivity for the detection of endometrial lesions and should not be used to evaluate suspected endometrial abnormalities. For these reasons it is most important to obtain Pap tests at regular intervals, as recommended by your physician or nurse practitioner. us Jenifer Babb MD LAB CYTOLOGY ORDERABLES Final Result PATHOLOGY [facility] Laboratory [place] [address] from Last 3 Months or Most Recently Relevant to Health Maintenance Insurance [facility] DUAL COMPLETE [id number] Advance Directives For more information, please contact: [phone] * Full Code (Latest Code Status on File) Date Activated Date Inactivated Comments 11/04/2020 11:41 AM 11/04/2020 4:14 PM * Full Code Date Activated Date Inactivated Comments 11/04/2020 9:59 AM 11/04/2020 11:41 AM Care Teams Cotton Tipper Relationship Specialty Start Date End Date Meliza Eastman MD [address] [place] [address] PCP - General Internal Medicine 01/20/21
--- OUTSIDE RECORDS SUMMARY | 2025-01-26 13:40 | XMS_ITS | Encounter Summary ---
Author Organization [facility] Address [address] [place] [address] Care Team Providers Care Interactive Web Developer Name Role Phone Esme Mercado MD Primary Care Provider Unavailab le Encounter Details Date Type Department Care Team (Late st Contact Info) Description 11/27/2004 Outpatient Historical [facility] Ilda Blum MD [address] [facility] [place] [address] ABDOMINAL PAIN UNSPEC SITE (Primary Dx) Social History Tobacco Use Types Packs/Day Years Used Date Smoking Tobacco: Never Assessed Comments Unknown Sex and Gender Information Value Date Recorded Sex Assigned at Not on file 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 Gender Identity Not on file Sexual Orientation Not on file documented as of this encounter Plan of Treatment Not on file documented as of this encounter Procedures Procedure Name Priority Date/Time Associated Diagnosis Comments TSH REFLEXIVE Routine 11/27/2004 12:48 PM CDT CBC WITH DIFFERENTIAL Routine 11/27/2004 12:48 PM CDT CBC WITH DIFFERENTIAL Routine 11/27/2004 12:48 PM CDT AMYLASE Routine 11/27/2004 12:48 PM CDT COMPREHENSIVE METABOLIC PANEL Routine 11/27/2004 12:48 PM CDT documented in this encounter Results * (ABNORMAL) CBC WITH DIFFERENTIAL (11/27/2004 12:48 PM CDT) NEUTROPHILS 48 36 - 74 % INTERFAC E SYSTEM LYMPHOCYTES 43 18 - 53 % INTERFAC E SYSTEM MONOCYTES 6 2 - 13 % INTERFACE SYSTEM EOSINOPHILS 1(L) 2 - 12 % INTERFAC E SYSTEM BASOPHILS 1 0 - 3 % INTERFACE SYSTEM NEUTROPHIL ABSOLUTE 3.36 K/uL INTERFACE SYSTEM LYMPHOCYTE ABSOLUTE 3.03 K/uL INTERFACE SYSTEM MONOCYTE ABSOLUTE 0.42 K/uL INTERFACE SYSTEM EOSINOPHIL ABSOLUTE 0.09 K/uL INTERFACE SYSTEM BASOPHILS ABSOLUTE 0.08 K/uL INTERFACE SYSTEM 11/27/2004 12:4 8 PM CDT Ilda Tello MD HEMATOLOGY ORDERABLES Final Result Performing Organization Address City/[facility] de Phone Number INTERFACE SYSTEM Refer to clinic/hospital department * CBC WITH DIFFERENTIAL (11/27/2004 12:48 PM CDT) WBC 7.0 4.0 - 9.8 K/uL INTERFACE SYSTEM RBC 4.62 3.90 - 4.90 M/uL INTERFACE SYSTEM HEMOGLOBIN 13.3 11.8 - 14.8 g/dL INTERFACE SYSTEM HEMATOCRIT 40.2 35.5 - 44.0 % INTERFACE SYSTEM MCV 87.0 82.0 - 99.0 fL INTERFACE SYSTEM MCH 28.8 27.2 - 32.6 pg INTERFACE SYSTEM MCHC 33.1 31.5 - 35.5 % INTERFACE SYSTEM RDW 12.9 11.5 - 14.5 % INTERFACE SYSTEM RDW-STDEV 41.2 37.1 - 48.7 fL INTERFACE SYSTEM PLATELETS 321 140 - 350 K/uL INTERFACE SYSTEM MPV 10.4 9.3 - 12.4 fL INTERFACE SYSTEM 11/27/2004 12:4 8 PM CDT Ilda Tello MD HEMATOLOGY ORDERABLES Final Result Performing Organization Address City/[facility] Co de Phone Number INTERFACE SYSTEM Refer to clinic/hospital department * AMYLASE (11/27/2004 12:48 PM CDT) AMYLASE 41 28 - 100 U/L INTERFACE SYSTEM 11/27/2004 12:4 8 PM CDT Ilda Tello MD CHEMISTRY ORDERABLES Final R esult Performing Organization Address [facility] [place] [facility] Phone Number INTERFACE SYSTEM Refer to clinic/hospital department * COMPREHENSIVE METABOLIC PANEL (11/27/2004 12:48 PM CDT) GLUCOSE 82 60 - 110 mg/dL INTERFACE SYSTEM CREATININE 0.7 0.4 - 1.2 mg/dL INTERFACE SYSTEM CALCIUM 9.7 8.4 - 10.2 mg/dL INTERFACE SYSTEM AST 16 12 - 32 U/L INTERFACE SYSTEM ALKALINE PHOSPHATASE 84 35 - 187 U/L INTERFACE SYSTEM BUN 14 6 - 20 mg/dL INTERFACE SYSTEM BILIRUBIN TOTAL 0.4 0.2 - 1.0 mg/dL INTERFACE SYSTEM ALBUMIN 4.5 3.8 - 5.4 g/dL INTERFACE SYSTEM TOTAL PROTEIN 7.8 6.3 - 8.6 g/dL INTERFACE SYSTEM ALT 15 0 - 31 U/L INTERFACE SYSTEM SODIUM 139 135 - 145 mmol/L INTERFACE SYSTEM POTASSIUM 4.1 3.5 - 4.9 mmol/L INTERFACE SYSTEM CHLORIDE 104 96 - 108 mmol/L INTERFACE SYSTEM CO2 25 22 - 30 mmol/L INTERFACE SYSTEM 11/27/2004 12:4 8 PM CDT Ilda Tello MD CHEMISTRY ORDERABLES Final R esult Performing Organization Address [facility] [place] [facility] Phone Number INTERFACE SYSTEM Refer to clinic/hospital department * TSH REFLEXIVE (11/27/2004 12:48 PM CDT) TSH 2.54 0.27 - 4.20 uU/mL INTERFACE SYSTEM 11/27/2004 12:4 8 PM CDT Ilda Tello MD CHEMISTRY ORDERABLES Final R esult Performing Organization Address [facility] [place] [facility] Phone Number INTERFACE SYSTEM Refer to clinic/hospital department documented in this encounter Visit Diagnoses Diagnosis Abdominal pain, unspecified site- Primary documented in this encounter Care Teams Interactive Web Developer Relationship Specialty Start Date End Date Esme Mercado MD PCP - General Family Practice 09/06/14 documented as of this encounter
--- OUTSIDE RECORDS SUMMARY | 2025-01-26 13:40 | XMS_ITS | Encounter Summary ---
Author Organization [facility] Address [address] [place] [address] Care Team Providers Care Smeller Name Role Phone Esme Mercado MD Primary Care Provider Unavailab le Encounter Details Date Type Department Care Team (Late st Contact Info) Description 04/02/[address] [facility] Family Medicine [address] 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
--- OUTSIDE RECORDS SUMMARY | 2025-01-26 13:40 | XMS_ITS | Encounter Summary ---
Author Organization [facility] Address [address] [place] [address] Care Team Providers Care Email Administrator Name Role Phone Esme Mercado MD Primary Care Provider Unavailab le Encounter Details Date Type Department Care Team (Late st Contact Info) Description 05/17/2006 Outpatient Historical [facility] Family Medicine [address] 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
--- OUTSIDE RECORDS SUMMARY | 2025-01-26 13:40 | XMS_ITS | Encounter Summary ---
Author Organization [facility] Address [address] [place] [address] Care Team Providers Care Boot Turner Name Role Phone Esme Mercado MD Primary Care Provider Unavailab le Encounter Details Date Type Department Care Team (Late st Contact Info) Description 10/12/2006 Outpatient [facility] Family Medicine [address] 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
--- OUTSIDE RECORDS SUMMARY | 2025-01-26 13:40 | XMS_ITS | Encounter Summary ---
Author Organization [facility] Address [address] [place] [address] Care Team Providers Care Director Translation Name Role Phone Esme Mercado MD Primary Care Provider Unavailab le Encounter Details Date Type Department Care Team (Late st Contact Info) Description 03/15/2007 Outpatient Historical [facility] Family Medicine [address] 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
--- OUTSIDE RECORDS SUMMARY | 2025-01-26 13:40 | XMS_ITS | Encounter Summary ---
Author Organization [facility] Address [address] [place] [address] Care Team Providers Care General Assistant Name Role Phone Esme Mercado MD Primary Care Provider Unavailab le Encounter Details Date Type Department Care Team (Late st Contact Info) Description 04/02/2006 Outpatient [facility] Family Medicine [address] 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
--- OUTSIDE RECORDS SUMMARY | 2025-01-26 13:40 | XMS_ITS | Encounter Summary ---
Author Organization [facility] Address [address] [place] [address] Care Team Providers Care Ortho Rn Name Role Phone Esme Mercado MD Primary Care Provider Unavailab le Encounter Details Date Type Department Care Team (Late st Contact Info) Description 06/28/2007 Outpatient [facility] Family Medicine [address] 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
--- OUTSIDE RECORDS SUMMARY | 2025-01-26 13:40 | XMS_ITS | Encounter Summary ---
Author Organization [facility] Address [address] [place] [address] Care Team Providers Care Sprinkler Truck Driver Name Role Phone Esme Mercado MD Primary Care Provider Unavailab le Encounter Details Date Type Department Care Team (Late st Contact Info) Description 10/12/2006 Outpatient Historical [facility] Family Medicine [address] 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
--- OUTSIDE RECORDS SUMMARY | 2025-01-26 13:40 | XMS_ITS | Encounter Summary ---
Author Organization [facility] Address [address] [place] [address] Care Team Providers Care Wire Galvanizer Name Role Phone Esme Mercado MD Primary Care Provider Unavailab le Encounter Details Date Type Department Care Team (Late st Contact Info) Description 10/25/2008 Outpatient [facility] Family Medicine [address] 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
--- OUTSIDE RECORDS SUMMARY | 2025-01-26 13:40 | XMS_ITS | Encounter Summary ---
Author Organization [facility] Address 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 [place], [place] [address] Admit Date: 02/14/2008 JUAN FRANCISCO LARSON Sex: F Admit Prov: CYNTHIA ACKERMAN Date: 1990 Primary Care Prov: CYNTHIA ACKERMAN CMRN: [id number] Room: [facility]: [id number] IMAGING SERVICES Ordering Prov: N/A Accession Number: [id number] Interpretation RIGHT ELBOW, 3 PROJECTIONS, 02/14/2008 Clinical History: Pain. Findings: No fracture, dislocation, focal bone production or destruction is identified. Impression: Negative. . Dictated by: JOHN MITCHELL 02/14/2008 13:02 Electronically signed by: JOHN MITCHELL 02/14/2008 16:56 Transcribed: 02/14/2008 16:42 AMK Procedure Note Provider, Historical - 02/14/[address] [address] Admit Date: 02/14/2008 JUAN FRANCISCO LARSON Sex: F Admit Prov: CYNTHIA ACKERMAN Date: 1990 Primary Care Prov: CYNTHIA ACKERMAN CMRN: [id number] Room: [facility]: [id number] IMAGING SERVICES Ordering Prov: N/A Interpretation RIGHT ELBOW, 3 PROJECTIONS, 02/14/2008 Clinical History: Pain. Findings: No fracture, dislocation, focal bone production ordestruction is identified. Impression: Negative. . Dictated by: JOHN MITCHELL 02/14/2008 13:02 Electronically signed by: JOHN MITCHELL 02/14/2008 16:56 Transcribed: 02/14/2008 16:42 AMK Cynthia Ackerman MD DIAGNOSTIC IMAGING ORDERABLE S Final Result documented in this encounter Visit Diagnoses Not on filedocumented in this encounter Care Teams Stave Cutting Supervisor Relationship Specialty Start Date End Date Esme Mercado MD PCP - General Family Practice 09/06/14 documented as of this encounter
--- OUTSIDE RECORDS SUMMARY | 2025-01-26 13:40 | XMS_ITS | Encounter Summary ---
Author Organization [facility] Address 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
--- OUTSIDE RECORDS SUMMARY | 2025-01-26 13:40 | XMS_ITS | Encounter Summary ---
Author Organization [facility] Address [address] [place] [address] Care Team Providers Care Recycling Center Operator Name Role Phone Esme Mercado MD Primary Care Provider Unavailab le Encounter Details Date Type Department Care Team (Late st Contact Info) Description 08/17/2005 Outpatient [facility] Family Medicine [address] 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
--- OUTSIDE RECORDS SUMMARY | 2025-01-26 13:40 | XMS_ITS | Encounter Summary ---
Author Organization [facility] Address [address] [place] [address] Care Team Providers Care Cardiovascular Sonographer Name Role Phone Esme Mercado MD Primary Care Provider Unavailab le Encounter Details Date Type Department Care Team (Late st Contact Info) Description 01/27/2006 Outpatient [facility] Family Medicine [address] 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
--- OUTSIDE RECORDS SUMMARY | 2025-01-26 13:40 | XMS_ITS | Clinical Summary ---
Author Organization [facility] Address [address] [place] [address] Care Team Providers Care Engineer System Administrator Name Role Phone Marixa Norris Can ONEIL Unavailable [phone] Bharat Angeles MD Unavailable [phone] Meliza Eastman MD Primary Care Pr ovider Source Comments [facility]non-owned Affiliates and Associated Physician Practices is amultiple site organization consisting of ambulatory clinics and hospital sitesin [place], [place], [place] and [place]. This disclosure is being madepursuant to the Care Everywhere program and may not contain all information available regarding this patient. Last updated 18.[facility] Allergies Active Allergy Reactions Criticality Noted Date Comments Cefaclor Rash Low 05/05/2008 Hmg-Coa-R Inhibitors GI Discomfort Low 09/21/2020 Metoclopramide Psychiatric High 06/06/2014 Medications * This document contains information received from the source organization and may not represent a complete record from that organization. * Be aware that medications may not be up to date on this document. Alwaysverify current medications with the patient. DULoxetine (CYMBALTA) 60 MG capsule Take 60 mg by mouth 2 times daily 0 Active pantoprazole EC (PROTONIX) 20 MG tablet Take 20 mg by mouth 2 times daily 0 Active zonisamide (ZONEGRAN) 25 MG capsule Take 1 capsule by mouth 3 times daily as needed 90 capsule 5 0 Active Additional Information Patient not taking.Reported on 03/13/2021 fluticasone propionate (FLONASE) 50 MCG/ACT nasal spray as needed 1 Active lamoTRIgine (LAMICTAL) 200 MG tablet Take 200 mg by mouth once daily 1 Active rizatriptan (MAXALT) 5 MG tablet Take 5 mg by mouth as needed 1 Active traZODone (DESYREL) 50 MG tablet Take 50 mg by mouth as needed 1 Active metroNIDAZOLE vaginal (METROGEL - VAGINAL) 0.75 % vaginal gel INSERT 1 APPLICATORFUL INTO THE VAGINA NIGHTLY FOR 5 DAYS 1 Active vitamin D, ergocalciferol , (DRISDOL) 1.25 MG (20972 UT) capsule Take 1 (one) capsule by mouth every 7 days 12 capsule 1 Active Active Problems Problem Noted Date Diagnosed Date Adjustment reaction 06/08/2019 Affective psychosis, bipolar 06/08/2019 Anxiety 10/20/2018 Overview (06/08/2019): Hydroxyzine is not helping. Will have her start Buspar 5mg, titrating up to TID. Alcohol use disorder, severe, dependence 018 Cannabis use disorder, moderate, dependence 08/21 MDD (major depressive disorder) 09/17/2017 Leukocytosis 11/03/2016 Overview (06/08/2019): Overview: Leukocytosis Borderline personality disorder 07/20/2016 Morbid obesity with BMI of 45.0-49.9, adult 06/23 Overview (06/08/2019): Last Assessment & Plan: BMI Follow-up includes: monitor exercise activity/diet. Hyperglycemia 01/30/2016 Uses control 12/21/2015 Pre-hypertension 09/03/2015 ABIOLA (generalized anxiety disorder) 08/31/2015 Chronic migraine without aura 08/31/2015 Irritable bowel syndrome with diarrhea 6 Overview (06/08/2019): Trial of Questran to help. Increasing Cymbalta may help with mood which in turn may help her IBS. Severe episode of recurrent major depressive disorder, without psychotic features 08/31/2015 Primary fibromyalgia syndrome 07/22/2015 Overview (06/08/2019): Overview: Primary fibromyalgia syndrome Tobacco user 04/18/2015 Irregular menstrual cycle 07/17/2011 Hyperlipidemia 02/08/2009 Chronic abdominal pain 02/07/2009 Overview (06/08/2019): Overview: Other chronic pain Seasonal allergies Overview (07/17/2011): pollen, mold Exercise-induced asthma Resolved Problems Problem Noted Date Diagnosed Date Resolved Date Morbid obesity 05/08/2019 06/08/2019 Overview (06/08/2019): Last Assessment & Plan: Obesity is worsening. Discussed the patient's BMI. The BMI is above average; BMI management plan is completed. General weight loss/lifestyle modification strategies discussed (elicit support from others; identify saboteurs; non-food rewards, etc). ERRONEOUS ENCOUNTER--DISREGARD 02/12/2015 06/08/2019 Moderate episode of recurren t major depressive disorder 08/27/2014 06/08/2019 Overview (06/08/2019): Overview: Anxiety and depression Unknown and unspecified causes of morbidity 02/23/2014 06/08/2019 Overview (06/08/2019): Overview: Migraine Elevated BP 04/04/2012 06/08/2019 Abdominal cramping complicating 02/10/2012 06/08/2019 Breast tenderness 07/17/2011 06/08/2019 Migraine 03/11/2010 06/08/2019 Abdominal pain, right lower quadrant 11/03/2008 07/17/2011 Immunizations Immunization Administration Dates Next Due INFLUENZA VACCINE 04/13/2017,03/21/2012 INFLUENZA VACCINE, QUADR. (F LUZONE; FLULAVAL; FLUARIX; AFLURIA QUADRIVALENT; 6MO+), 0.5 ML (IIV4) 03/26/2015 INFLUENZA VACCINE, RECOM-JUSTIN, TRIV. (FLUBLOCK TRIVALENT; 18Y+) (RIV3) 06/01/2014 Influenza Intradermal 04/25/2012 PNEUMOCOCCAL PPSV23 05/18/2012 TDAP (7yrs+) 04/25/2012,05/05/2008 Family History Medical History Relation Name Comments Hypertension Maternal Grandfather Hypertension Maternal Grandmother Cancer Mother Hodgkin's Lymph sanna/thyroid Depression Mother Hypertension Mother Bipolar Disorder Sister Relation Name Status Comments Maternal Grandfather Maternal Grandmother Mother Alive Sister Social History Tobacco Use Types Packs/Day Years Used Date Smoking Tobacco: Former Cigarettes 0.3 5 0 02/21/2016 - 02/20/2021 Smokeless Tobacco: Never Tobacco Cessation:Counseling Given: Yes Comments:started smoking at age 14 Alcohol Use Standard Drinks/Week Comments No 0 (1 standard drink = 0.6 oz pur e alcohol) socialy Comments No Sex and Gender Information Value Date Recorded Sex Assigned at Female 03/13/2021 11:09 AM CDT Legal Sex Female 4:44 AM AUTOMOBILE UPHOLSTERER Gender Identity Female 03/13/2021 11:09 AM CDT Sexual Orientation Bisexual 03/13/2021 11 :09 AM CDT 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, 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 Not on file Not on f ile Not on file Not on file Not on file Not on file Not on file Last Filed Vital Signs Vital Sign Reading Time Taken Comments Blood Pressure 120/90 03/13/2021 3:00 PM CDT Pulse 81 03/13/2021 3:00 PM CDT Temperature 36.7 C (98 F) 03/08/2020 2:50 PM CDT Respiratory Rate 16 06/08/2019 3:09 PM AUTOMOBILE UPHOLSTERER Oxygen Saturation 98% 03/13/2021 3:00 PM CDT Inhaled Oxygen Concentration - - Weight 113.4 kg (250 lb) 03/27/2021 3:00 PM CDT per pt Height 167.6 cm (5' 6) 03/27/2021 3:00 PM CDT p er pt Body Mass Index 40.35 03/27/2021 3:00 PM CDT Plan of Treatment Health Maintenance Due Date Last Done Comments HIV SCREENING 2005 HEPATITIS B VACCINE (1 of 3 - 19+ 3-dose series) 2009 HPV VACCINE (1 - 3-dose SCDM series) 2017 DTAP/TDAP/TD VACCINES (3 - Td or Tdap) 04/25/2022 04/25/2012, 05/05/2008 COVID-19 VACCINE (3 - season) 2024 11/26/2020, 10/25/2020 INFLUENZA VACCINE (#1) 2025 7, 03/26/2015, 06/01/2014, Additional history exists ZOSTER VACCINE (1 of 2) 2040 PNEUMOCOCCAL VACCINE Aged Out 05/18/2012 No long er eligible based on patient's age to complete this topic HEPATITIS C SCREENING Completed 03/18/2021 HIB VACCINE Aged Out No longer eligi ble based on patient's age to complete this topic MENINGOCOCCAL (Group B) VACCINE SHARED DECISION-MAKING Aged Out No longer eligible based on patient's age to complete this topic MENINGOCOCCAL GROUPS A/C/Y/W VACCINE Aged Out No longer eligible based on patient's age to complete this topic Procedures Procedure Name Priority Date/Time Associated Diagnosis Comments HEPATITIS SCREEN ACUTE Routine 03/18/2021 2:31 PM CDT Arthralgia, unspecified joint Insomnia, unspecified type Myalgia from Last 3 Months or Most Recently Relevant to Health Maintenance Results * HEPATITIS SCREEN ACUTE (03/18/2021 2:31 PM CDT) Hepatitis A Virus Antibody IgM Negative Negative [facility] INSURANCE BILL Hepatitis B Virus Surface Antigen Negative Negative [facility] INSURANCE BILL Hepatitis B Core Virus Antibody IgM Negative Negative [facility] INSURANCE BILL Hepatitis C Antibody <0.1 0.0 - 0.9 s/co ratio [facility] INSURANCE BILL Comment: Negative: < 0.8 Indeterminate: 0.8 - 0.9 Positive: > 0.9 . The CDC recommends that a positive HCV antibody result be followed up with a HCV Nucleic Acid Amplification test ([id number]). Blood BLOOD SPECIMEN / Unknown 03/18/2021 2:31 PM CDT 03/18/2021 Narrative Resulting Agency Comment Lab Testing performed at: [facility] [address] [phone] [place] Bharat [place] MD LAB - CHEMISTRY ORDERABLES Susana ayala Result [facility] INSURANCE BILL [address] [place] [address] from Last 3 Months or Most Recently Relevant to Health Maintenance Insurance [employer] Advance Directives * Full Code (Latest Code Status on File) Date Activated Date Inactivated Comments 09/17/2017 6:13 PM 09/20/2017 5:02 PM * FULL RESUSCITATION Date Activated Date Inactivated Comments 05/17/2012 5:47 PM 05/18/2012 1:25 PM * FULL RESUSCITATION Date Activated Date Inactivated Comments 05/16/2012 11:49 PM 05/17/2012 5:47 PM * FULL RESUSCITATION Date Activated Date Inactivated Comments 01/07/2012 7:34 PM 01/07/2012 10:48 PM * Full Code Date Activated Date Inactivated Comments 02/07/2009 3:22 AM 02/09/2009 6:58 AM Care Teams Engineer System Administrator Relationship Specialty Start Date End Date Meliza Eastman MD [address] [place] [address] PCP - General Internal Medicine 03/13/21 Marixa Norris DO Obstetrics and Gynecology 07/17/11 Bharat Angeles MD Nurse Epidemiologist Rheumatology 03/13/21
--- OUTSIDE RECORDS SUMMARY | 2025-01-26 13:40 | XMS_ITS | Encounter Summary ---
Author Organization [facility] Address [address] [place] [address] Care Team Providers Care Caregivers Homecare Name Role Phone Esme Mercado MD Primary Care Provider Unavailab le Encounter Details Date Type Department Care Team (Late st Contact Info) Description 01/27/2006 Outpatient Historical [facility] Family Medicine [address] [place] [phone] Ilda Tello MD [address] [place] [id number] Headache (Primary Dx) Social History Tobacco Use Types Packs/Day Years Used Date Smoking Tobacco: Never Assessed Comments Unknown Sex and Gender Information Value Date Recorded Sex Assigned at Not on file Legal Sex Female 5:20 AM TOPOGRAPHICAL ENGINEER Gender Identity Not on file Sexual Orientation Not on file documented as of this encounter Plan of Treatment Not on file documented as of this encounter Visit Diagnoses Diagnosis Headache(784.0)- Primary Headache documented in this encounter Care Teams Caregivers Homecare Relationship Specialty Start Date End Date Esme Mercado MD PCP - General Family Practice 09/06/14 documented as of this encounter
[2025-01-26 13:55] VITALS: BP 121/76; PULSE 108; RESP 20; TEMP 36.3; O2SAT 99
== END 2025-01-26 14:26 | disposition home or self-care (01) ==
PROVIDERS: Emergency Provider Nurse Practitioner Family
DX: T81.40XA Infection following a procedure, unspecified, initial encounter (principal); L03.114 Cellulitis of left upper limb; F32.A Depression, unspecified
CPT/HCPCS: 99213; G0463